=== PATIENT | male | born 1945 | race Caucasian/White ===

== ENCOUNTER 2020-01-01 14:58 | Inpatient (IN) | payer MEDICARE, MEDICAID ==
[~2020-01-01] VITALS: Ht 182.9 cm; Wt 84.9 kg
[2020-01-01] VITALS (20 sets, daily range): BP systolic 71–140; BP diastolic 35–107
--- NOTE | 2020-01-01 14:35 | NUR ---
ARRIVAL PT ARRIVED FROM [facility] VIA [facility] FLIGHT CREW. PT TRANSFERRED TO BED VIA STRETCHER X4. PT UNABLE TO GIVE ACCURATE HISTORY. A/O X1 ONLY. HOOKED UP TO ALL MONITORS.
[2020-01-01] MEDS ORDERED: LOPRESSER IVP STA (15:07)
[2020-01-01 15:31] LABS: ABG PCO2 28.7 mmHg (35.0-45.0); ABG PH 7.328 (7.350-7.450); BE(B) -9.8 mmol/L (-2.0-2.0); HCO3act 14.7 mmol/L (22.0-26.0); pO2 55.5 mmHg (80.0-100.0)
--- NOTE | 2020-01-01 15:40 | NUR ---
ABG ABG RESULTS CALLED TO DR. DALTON. ORDERS RECEIVED FOR SWITCH PATIENT TO BIPAP. YOLY RT NOTIFIED.
--- NOTE | 2020-01-01 15:42 | PCM.HP ---
History of Present Illness Hx of Present Illness 74-year-old male with past medical history of CABG coronary artery disease and TX earlier this month, by verbal report no records of this in transfer packet. He presented to [facility] with increased shortness of breath palpitations and chest pain was found to be in A. fib with RVR with a sustained rate of 150 this was treated with push doses of metoprolol and Cardizem he was requiring a nonrebreather and chest x-ray showed findings consistent with Covid pneumonia. Antigen testing was positive for Covid patient was treated with ceftriaxone, remdesivir, dexamethasone and was also found to have a potassium of 2.5 which was replaced with IV potassium. Facility did not have any available ICU beds or high flow nasal cannula they were also out of BiPAP he tried to transfer the patient to an area closer to [place] but all hospitals were full and adjacent cities of [facility] in [place] for this reason [facility] [facility] was contacted as we have available ICU beds and available high flow nasal cannula with the option of BiPAP. In setting of current situation patient was transferred to the nearest appropriate facility with the correct resources to care for him we do have cardiology available and they have been consulted due to mildly elevated troponin of 0.246 which is likely a demand ischemia given A. fib with RVR and COVID-19 positive as well as hypoxia despite nonrebreather. No active chest pain upon arrival no acute ischemic changes on EKG Did show A. fib with RVR with heart rate initially 160s then slowed to 93 on repeat evaluation. Labs at [facility] were notable for white blood cell count of 21 he did receive steroids hemoglobin 13.2 platelet count 344. Creatinine 1.3 glucose 151 normal LFTs BNP of 564 and alcohol level of 6 mg/dL patient has a history of heavy drinking over the last 3 months his does report some diarrhea that has been dark and vomiting. Overall patient is a poor historian and most of the history w as obtained from physician signout report family and medical records Medications: Listed in patient's medical record include clopidogrel 75 mg p.o. daily, carvedilol 6.25 mg p.o. twice daily, lisinopril 10 mg p.o. daily, atorvastatin 20 mg p.o. nightly, Isosorbide dinitrate 20 mg p.o. twice daily. Tylenol with codeine 1 tab p.o. every 4 hours as needed for pain nifedipine 30 mg tablet ER p.o. twice daily icosapent Danya 1 g capsule p.o. twice daily aspirin 81 mg p.o. daily gabapentin 300 mg p.o. 3 times daily allopurinol 100 mg p.o. twice daily Medical history: Cardiac catheterization with stents x4 CABG hyperlipidemia, hypertension, myocardial infarction 09/05/2018 no internal defibrillator Surgical history: Neck surgery C2, cardiovascular surgery-CABG, gastrointestinal surgery, cholecystectomy, appendectomy Review of Systems Constitutional: Weakness, Malaise Eyes: No: Pain, Vision change, Conjunctivae inflammation, Eyelid inflammation, Other, Redness ENT: No: Ear pain, Ear discharge, Nose pain, Nose discharge, Nose congestion, Mouth pain, Mouth swelling, Throat pain, Throat swelling, Other Respiratory: Cough, Shortness of breath Cardiovascular: Chest Pain Gastrointestinal: Nausea, Vomiting, Diarrhea Genitourinary: No Dysuria, No Frequency, No Incontinence, No Hematuria, No Retention, No Other Musculoskeletal: No: other, neck pain, shoulder pain, arm pain, back pain, hand pain, leg pain, foot pain Skin: No: Rash, Lesions, Jaundice, Bruising, Other Neurological: Weakness Allergies: Coded Allergies: No Known Allergies (Unverified , 01/01/20) VTE VTE Risk Score VTE Risk: Score 0-1 = Low Risk (Aggressive mobilization; early ambulation; no VTE prophylaxis required) Score 2: Moderate Risk (Intermittent/Pneumatic Compression Device OR Lovenox/Heparin/Coumadin) Score 3-4: High Risk (Intermittent/Pneumatic Compression Device AND Lovenox/Heparin/Coumadin) Score > or =5: Highest Risk (Intermittent/Pneumatic Compression Device AND Lovenox/Heparin/Coumadin) Antico:Hep/LMWH/Coum/Xarelto: Yes Mechanical device ordered: Yes Exam Vital Signs Vital Signs Date Time Temp Pulse Resp B/P (MAP) Pulse Ox O2 Delivery O2 Flow Rate FiO2 01/01/20 15:19 122 140/107 01/01/20 15:02 26 92 01/01/20 14:40 Comfort Jose R 45.00 General Appearance: Alert, Cooperative HEENT: Atraumatic Respiratory: Other (Course breath sounds bilaterally, tachypnea) Cardiovascular: Other (Tachycardia with irregularly irregular pulse) Abdominal: Normal bowel sounds, Soft, No tenderness Extremities: No cyanosis, No edema Skin: No rash, No breakdown Neuro: Sensation intact, Cranial nerves 3-12 NL Psych/Mental Status: Mood NL Assessment/Plan Assessment/Plan Assessment/Plan Assessment: 74-year-old male with acute hypoxemic respiratory failure due to COVID-19 pneumonia with extensive heart history including CABG and TX earlier this month as well as hypokalemia. Presented with shortness of breath and chest pain. Plan: Hilaria chapman with RVR: Consulted Dr. Rich with cardiology will obtain echo full dose anticoagulation with enoxaparin for now given COVID-19 positive status may transition to oral anticoagulation based on chads vas 2 score. Medical management of elevated troponin that may be due to demand ischemia rate control with diltiazem drip. Check TSH and magnesium, replete potassium Chest pain: Now resolved after aspirin enoxaparin oxygen cardiology is on board will read echo in the morning no plans for any invasive cardiac work-up inpat ient given Covid positive status plan to set up outpatient cardiac work-up. Will trend troponins and repeat EKG if patient again develops chest pain. No clear acute ischemic changes on EKG evaluation somewhat limited with A. fib RVR echocardiogram obtained. COVID-19 pneumonia: We will treat with remdesivir, dexamethasone, azithromycin, ceftriaxone, full dose enoxaparin- high flow nasal cannula alternating with CPAP or BiPAP and intubation as a last resort should other respiratory interventions prove unsuccessful. Vitamin D supplementation zinc vitamin C. Blood cultures Hypokalemia: We will check mag level and repeat calcium level after IV potassium infusion has completed Reported history of alcohol abuse: Blood alcohol level was nearly undetectable we will monitor CIWA scale and treat with Ativan as indicated will initiate thiamine and folate replacement IV DVT prophylaxis with SCDs and enoxaparin GI prophylaxis with Pepcid Medications: Listed in patient's medical record include clopidogrel 75 mg p.o. daily, carvedilol 6.25 mg p.o. twice daily, lisinopril 10 mg p.o. daily, atorvastatin 20 mg p.o. nightly, Isosorbide dinitrate 20 mg p.o. twice daily. Tylenol with codeine 1 tab p.o. every 4 hours as needed for pain nifedipine 30 mg tablet ER p.o. twice daily icosapent Danya 1 g capsule p.o. twice daily aspirin 81 mg p.o. daily gabapentin 300 mg p.o. 3 times daily allopurinol 100 mg p.o. twice daily Medical history: Cardiac catheterization with stents x4 CABG hyperlipidemia, hypertension, myocardial infarction 09/05/2018 no internal defibrillator Problems: (1) Pneumonia due to COVID-19 virus ICD Code: U07.1 - COVID-19; J12.89 - Other viral pneumonia (2) Hyponatremia ICD Code: E87.1 - Hypo-osmolality and hyponatremia SNOMED: 58535268 (3) Atrial fibrillation with RVR ICD Code: I48.91 - Unspecified atrial fibrillation SNOMED: 009083780539290 (4) Elevated troponin ICD Code: R77.8 - Other specified abnormalities of plasma proteins SNOMED: 465946369, 355185949, 885649611 (5) Acute hypoxemic respiratory failure due to severe acute respiratory syndrome coronavirus 2 (SARS-CoV-2) disease ICD Code: U07.1 - COVID-19; J96.01 - Acute respiratory failure with hypoxia TAMY DALTON MD Jan 01, 2020 15:42
--- NOTE | 2020-01-01 15:45 | NUR ---
CARDIOLOGY DR DALTON NOTIFIED THIS NURSE THAT DR BROWN HAS BEEN CONSULTS FOR PTS CASE. ECHO HAS BEEN ORDERED. PT TO BE STARTED ON CARDIZEM DRIP PER PROTOCOL. SEE EMR FOR NEW ORDERS.
[2020-01-01] MEDS ORDERED: CARDIZEM IV STA (16:23)
--- NOTE | 2020-01-01 16:23 | PCM.EKG ---
[facility] Test Date: 2020-01-01 Test Time: 15:14:59 Pat Name: PRASANTH NG Department: [id number]4 A Gender: M Director Of Safety And Security: KENJI : 1945 Requested By: TAMY DALTON Order Number: [id number] Reading MD: Measurements Intervals [place] Rate: 93 P: AL: QRS: 47 QRSD: 139 T: -24 QT: 356 QTc: 443 Interpretive Statements Atrial fibrillation Right bundle branch block Borderline ST depression, lateral leads Baseline wander in lead(s) II No previous ECG available for comparison Please click the below link to view image of tracing.
[2020-01-01] MEDS ORDERED: ATIVAN IV STA (16:25)
--- NOTE | 2020-01-01 16:27 | DIREP ---
PROCEDURE:CHEST 1 VIEW COMPARISON:None. INDICATIONS:SHORTNESS OF BREATH FINDINGS: LUNGS/PLEURA:Multiple foci of ground-glass opacities in both lungs. Left hemidiaphragmatic border is obscured; cannot rule out small left pleural effusion. VASCULATURE:Normal. Unremarkable pulmonary vasculature. CARDIAC:Normal heart size. Sternotomy wires and mediastinal clips suggestive of prior CABG surgery. Calcification of the aortic knob. MEDIASTINUM:Normal. No visible mass or adenopathy. BONES:No acute pathology. Anterior fusion hardware in the lower C-spine. OTHER:Negative. CONCLUSION:Bilateral ground-glass infiltrates suggestive of viral pneumonia. Dictated by: Robbie Persaud M.D. on 01/01/2020 at 04:24 PM
--- NOTE | 2020-01-01 16:30 | NUR ---
ACCESS UNABLE TO OBTAIN LABS. REQUESTED A MIDLINE PLACEMENT. OKAY TO PLACE MIDLINE PER DR DALTON. Jeni GRACE RN NOTIFIED
[2020-01-01] MEDS ORDERED: DILTIAZEM HCL IV ONE (16:44)
[2020-01-01] MEDS ORDERED: CARDIZEM ONE (16:44)
--- NOTE | 2020-01-01 17:00 | NUR ---
MIDLINE Brenda ANDREWS RN AND Jeni GRACE RN AT BEDSIDE FOR MIDLINE PLACEMENT
--- NOTE | 2020-01-01 17:10 | NUR ---
COMBATIVE PT FIGHTING BIPAP AND ATTEMPTED TO PULL OUT GODOY CATH. DR DALTON NOTIFIED. ORDERS RECEIVED FOR SOFT EXTREMITY RESTRAINTS FOR UPPER EXTREMITIES. PLACED AT THIS TIME.
[2020-01-01] MEDS: DECADRON IV SCH (17:11)
[2020-01-01] MEDS: PEPCID IV SCH ×2 (17:12→20:37)
[2020-01-01] MEDS: REMDESIVIR (EUA) 100 MG in NS 250ML 250 ML IV SCH (17:12)
[2020-01-01] MEDS: CARDIZEM 125 MG in NS 100ML 100 ML IV SCH (17:12)
[2020-01-01] MEDS: ROCEPHIN 1,000 MG in NS 100ML 100 ML IV SCH (17:12)
[2020-01-01] MEDS: LOVENOX SQ SCH ×2 (17:13→20:39)
[2020-01-01] MEDS ORDERED: DILAUDID ONE (17:50)
--- NOTE | 2020-01-01 17:50 | NUR ---
COMBATIVE PT FIGHTING DURING MIDLINE INSERTION. ORDERS RECEIVE FOR DILAUDID 1MG IV. DR DALTON WILL ENTER IN ORDER
[2020-01-01] MEDS ORDERED: THIAMINE HCL IV STA (17:52)
[2020-01-01] MEDS: ZITHROMAX 500 MG in NS 250ML 250 ML IV SCH (17:54)
[2020-01-01] MEDS: NS 1000 ML/KCL 40MEQ 1,000 ML IV SCH (17:55)
[2020-01-01] MEDS: DILAUDID IV PRN (17:55)
[2020-01-01] MEDS ORDERED: VITAMIN D2 PO SCH (18:00)
[2020-01-01] MEDS ORDERED: FOLIC ACID IV ONE (18:00)
[2020-01-01 18:03] LABS: APPEARANCE,URINE CLEAR (CLEAR); BILIRUBIN,URINE SMALL MG/DL (NEGATIVE); UA COLOR YELLOW (YELLOW)
--- NOTE | 2020-01-01 18:20 | NUR ---
MIDLINE MIDLINE UNSUCCESSFUL. DR DALTON NOTIFIED. ORDERS RECEIVED FOR NS BOLUS X1 NOW THEN ATTEMPT REDRAW FOR LABS
[2020-01-01] MEDS ORDERED: INFUVITE ADULT IV SCH (18:30)
[2020-01-01] MEDS ORDERED: FOLIC ACID IV SCH (18:30)
[2020-01-01] MEDS ORDERED: NS 1000ML 1,000 ML IV ONE (18:30)
[2020-01-01] MEDS ORDERED: NS IV SCH (18:30)
[2020-01-01] MEDS ORDERED: THIAMINE HCL IV SCH (18:30)
--- NOTE | 2020-01-01 18:35 | NUR ---
MIDLINE-ATTEMPTED MIDLINE PLACEMENT X 2 TO LEFT UPPER ARM. GOOD BLOOD RETURN UNABLE TO ADVANCE WIRE. LAMBERTO BILLS ATTEMPTED TO PLACE MIDLINE TO RT UPPER ARM X 2 ATTEMPTS UNABLE TO ADVANCE WIRE. REPORT GIVEN TO Travis GRIFFIN RN
--- NOTE | 2020-01-01 18:40 | NUR ---
REPORT REPORT GIVEN TO Luis SHEETS RN AND RELINQUISHED CARE
--- NOTE | 2020-01-01 19:30 | NUR ---
Daily ICU assessment done at this time. Soft wrist restraints removed to palpate radial pulses, and put back on at this time. Radial pulses palpable at this time. Cap refill >4 at this time due to pt's hands being cold. Pedal pulses palpable at this time. Will continue to monitor pt.
[2020-01-01 19:46] LABS: ABG PCO2 23.2 mmHg (35.0-45.0); ABG PH 7.359 (7.350-7.450); BE(B) -10.9 mmol/L (-2.0-2.0); HCO3act 12.8 mmol/L (22.0-26.0); pO2 135.4 mmHg (80.0-100.0)
[2020-01-01 19:49] LABS: MEAN CORP HGB 28.4 pg (26-34); RED CELL DISTRIBUTION WIDTH 16.8 % (11.5-14.5)
[2020-01-01 20:23] LABS: CARBON DIOXIDE 16.2 mmol/L (20.0-32)
[2020-01-01 20:24] LABS: CALCIUM 8.4 mg/dL (8.4-10.5)
--- NOTE | 2020-01-01 20:39 | NUR ---
Lovenox 75mg was given at 1713. Another dose of Lovenox 75mg is due at 2100. This nurse will non-admin that scheduled dose due to being too close together.
[2020-01-01] MEDS ORDERED: NS 100ML 100 ML IV ONE (20:53)
[2020-01-01] MEDS ORDERED: MAGNESIUM SULFATE 50 ML IV ONE (20:55)
[2020-01-01] MEDS ORDERED: MAGNESIUM-D5W 1 GM/100 ML SOLN 100 ML IV ONE (21:00)
--- NOTE | 2020-01-01 21:23 | NUR ---
Soft wrist restraints removed to palpate radial pulses, and put back on at this time. Radial pulses palpable at this time. Cap refill <3 at this time. Skin still cool to touch. Pedal pulses palpable at this time. Will continue to monitor pt.
[2020-01-01] MEDS: ATIVAN IV PRN (22:22)
--- NOTE | 2020-01-01 23:00 | NUR ---
ICU-4, replaced portable E-cylinder. Nursing switching pumps. Transported Patient via bed to NV on NRB mask. Approximate time was 45 minutes.
[2020-01-02] VITALS (83 sets, daily range): BP systolic 66–181; BP diastolic 32–116
--- NOTE | 2020-01-02 00:20 | NUR ---
Soft wrist restraints removed to palpate radial pulses, and put back on at this time. Radial pulses palpable at this time. Cap refill <3 at this time. Pedal pulses palpable at this time. Will continue to monitor pt.
--- NOTE | 2020-01-02 00:30 | DIREP ---
PROCEDURE:CT PULMONARY ANGIOGRAM TECHNIQUE:Following the intravenous administration of contrast material, axial cuts were obtained through the chest. Sagittal and coronal MIP post-processing reconstructions are provided. Satisfactory pulmonary arterial contrast opacification was achieved. The images were viewed at lung and soft tissue settings. COMPARISON:[facility], , XRAY CHEST SINGLE VW, 01/01/2020, 03:21 PM. INDICATIONS:suspected PE FINDINGS: PULMONARY ARTERIES:Patent. LUNGS:Bilateral probably peripheral and basilar conglomerate consolidations, ground-glass opacities and interstitial thickening. CARDIAC:Heart size within normal limits. Coronary artery calcifications, CABG. THYROID:Normal. THORACIC AORTA:Normal. MEDIASTINUM:Normal. PLEURA:Normal. BONES:Sternotomy OTHER:No additional findings. CONCLUSION: 1. Negative for pulmonary embolism. 2. Commonly reported imaging features of COVID-19 pneumonia are present. Other processes such as influenza pneumonia and organizing pneumonia, as can be seen with drug toxicity and connective tissue disease, can cause a similar imaging pattern. Dictated by: Burton Soares M.D. on 01/02/2020 at 00:26 AM
--- NOTE | 2020-01-02 02:13 | NUR ---
Soft wrist restraints removed to palpate radial pulses, and put back on at this time. Radial pulses palpable at this time. Cap refill <3 at this time. Skin is warm to the touch. Pedal pulses palpable at this time. Will continue to monitor pt.
--- NOTE | 2020-01-02 02:15 | NUR ---
DR DALTON on the floor at this time. Pt HR fluctuates between 50-70s while on Cardizem 5mg drip. No changes made at this time. BPs are stable at this time. Will continue to monitor pt.
[2020-01-02] MEDS: ATIVAN IV PRN ×4 (03:29→22:30)
[2020-01-02] MEDS: NS 1000 ML/KCL 40MEQ 1,000 ML IV SCH ×2 (03:54→14:00)
[2020-01-02] MEDS ORDERED: CARDIZEM ONE (04:02)
[2020-01-02] MEDS ORDERED: NS 100ML 100 ML IV ONE (04:02)
[2020-01-02] MEDS: CARDIZEM 125 MG in NS 100ML 100 ML IV SCH (04:08)
--- NOTE | 2020-01-02 04:16 | NUR ---
Soft wrist restraints removed to palpate radial pulses, and put back on and retightened at this time. Radial pulses palpable at this time. Cap refill <3 at this time. Skin is warm to the touch. Pedal pulses palpable at this time. Will continue to monitor pt.
[2020-01-02 04:55] LABS: ABG PCO2 27.7 mmHg (35.0-45.0); ABG PH 7.293 (7.350-7.450); HCO3act 13.1 mmol/L (22.0-26.0)
--- NOTE | 2020-01-02 05:30 | NUR ---
ABG RESULT RELAYED TO DR DALTON. NO NEW ORDERS RECEIVED.
--- NOTE | 2020-01-02 06:14 | NUR ---
Soft wrist restraints removed to palpate radial pulses. Radial pulses palpable at this time. Cap refill <3 at this time. Skin is warm to the touch. Pedal pulses palpable at this time.
[2020-01-02 06:37] LABS: BASOPHIL % 0.1 % (0.0-0.2); LYMPHOCYTES % 4.6 % (24.0-44.0); MEAN CORP HGB 28.4 pg (26-34); MONOCYTES # 0.2 10^3/uL (0.3-0.8); MONOCYTES % 1.5 % (5.0-12.0); NEUTROPHIL # 12.2 10^3/uL (1.8-7.7); NEUTROPHILS % 92.7 % (41.0-85.0); PLATELET COUNT 325 10^3/uL (150-400); RED CELL DISTRIBUTION WIDTH 17.1 % (11.5-14.5)
[2020-01-02 07:11] LABS: CARBON DIOXIDE 16.8 mmol/L (20.0-32)
--- NOTE | 2020-01-02 07:17 | NUR ---
0630 recieved report/assumed care
[2020-01-02 07:20] LABS: CALCIUM 8.6 mg/dL (8.4-10.5)
[2020-01-02] MEDS: ZINC SULFATE PO SCH (08:26)
[2020-01-02] MEDS: PEPCID IV SCH ×2 (08:26→22:20)
[2020-01-02] MEDS: REMDESIVIR (EUA) 100 MG in NS 250ML 250 ML IV SCH (08:26)
[2020-01-02] MEDS: LOVENOX SQ SCH (08:27)
[2020-01-02 08:52] LABS: BURR CELLS 2+ (NEGATIVE); LYMPHOCYTE 4 % (25-36); MONOCYTE 2 % (3-9); SEGMENTED NEUTROPHILS 94 % (31-76)
[2020-01-02] MEDS ORDERED: PLAVIX PO SCH (09:00)
[2020-01-02] MEDS ORDERED: ASPIRIN PO SCH (09:00)
--- NOTE | 2020-01-02 09:57 | PCM.EKG ---
[facility] Test Date: 2020-01-02 Test Time: 09:53:00 Pat Name: PRASANTH NG Department: Room: ICU4 A Gender: M Assistant Infant Toddler Teacher: KENJI : 1945 Requested By: ALEK BROWN Order Number: [id number] Reading MD: Measurements Intervals [place] Rate: 42 P: AL: QRS: 43 QRSD: 175 T: -14 QT: 533 QTc: 446 Interpretive Statements Atrial fibrillation Right bundle branch block Borderline ST depression, lateral leads Baseline wander in lead(s) I,II,aVR,aVL,aVF,V2,V3,V4 Compared to ECG 01/01/2020 15:14:59 No significant changes Please click the below link to view image of tracing.
[2020-01-02] MEDS ORDERED: ATROPINE SULFATE IV STA (10:06)
--- NOTE | 2020-01-02 10:55 | PCM.ECHO ---
APPROVED REPORT EXAM: Comprehensive 2D, Doppler, and color-flow Echocardiogram. Patient Location: IN-PATIENT Indications Atrial Fibrillation Elevated troponin, Covid positive 2D Dimensions LVOT Diameter 2.09 (1.8-2.4cm) LVEF(%) 43.99 (>50%) M-Mode Dimensions Left Atrium(MM) 4.90 (2.5-4.0cm) IVSd 1.40 (0.7-1.1cm) Aortic Root 2.80 (2.2-3.7cm) LVDd 4.35 (4.0-5.6cm) Aortic Cusp Exc 1.50 (1.5-2.0cm) PWd 1.30 (0.7-1.1cm) MV EPSS 0.74 (<0.5cm) IVSs 1.30 cm FS (%) 30.05 % LVDs 3.05 (2.0-3.8cm) ESV(Teich) 37.12 ml PWs 1.85 cm LVEF(%) 57.57 (>50%) Volumes Biplane 2D LV Volumes Biplane 2D LA Volumes LVEDv A4C 139.41 mL LA ESV Index LVESv A4C 80.08 mL Aortic Valve AoV Peak Yannick. 1.55 m/s AoV VTI 28.80 cm AO Peak GR. 10.15 mmHg AO Mean GR. 5.10 mmHg LVOT VTI 14.85 cm LVOT Peak Yannick. 0.74 m/s PABLITO(VTI)/BSA 1.77 cm2/m2 PABLITO (VTI) 1.77 cm2 Mitral Valve MV E Velocity 1.45m/s MR Peak Gr. 28.55mmHg Pulmonary Valve PV Peak Velocity 0.80m/s PV Peak Grad. 2.75mmHg RVOT VTI 20.86cm Tricuspid Valve TR P. Velocity 2.90m/s RAP ESTIMATE 10.00mmHg TR Peak Gr. 34.34mmHg RVSP 44.34mmHg LEFT VENTRICLE The left ventricle is normal size. The left ventricular systolic function is normal. The left ventricular ejection fraction is within the normal range. There is normal left ventricular wall thickness. There is normal LV segmental wall motion. The left ventricular diastolic function is normal. There is no ventricular septal defect visualized. No left ventricle thrombus noted on this study. LVEF is 55-60%. RIGHT VENTRICLE The right ventricle is normal size. The right ventricular systolic function is normal. There is normal right ventricular wall thickness. ATRIA The left atrium size is normal. The right atrium size is normal. The interatrial septum is intact with no evidence for an atrial septal defect. AORTIC VALVE The aortic valve is normal in structure. There is no aortic valvular stenosis. No aortic regurgitation is present. There is no aortic valvular vegetation. MITRAL VALVE The mitral valve is normal in structure. There is no mitral valve stenosis. There is no mitral valve regurgitation noted. There is no evidence of mitral valve vegetations. TRICUSPID VALVE The tricuspid valve is normal in structure. There is no tricuspid valve stenosis. Moderate tricuspid regurgitation. There is no tricuspid valve vegetations. PULMONIC VALVE The pulmonary valve is normal in structure. There is no pulmonic valvular stenosis. There is no pulmonic valvular regurgitation. GREAT VESSELS The aortic root is normal in size. The pulmonary artery is normal. Aortic arch is not well visualized. The IVC is normal in size and collapses >50% with inspiration. PERICARDIUM There is no pericardial effusion. There is no pleural effusion. Other Information Study Quality: Fair <Conclusion> The left ventricular systolic function is normal. LVEF is 55-60%. Moderate tricuspid regurgitation. Electronically signed by : ALEK BROWN. 01/02/2020 10:54:33
--- NOTE | 2020-01-02 11:06 | NUR ---
ASSUMED CARE WITH HR IN 60'S WITH DROPS INTO THE 40'S, TOLD IN REPORT. 0900 HEART RATE PERSISTED IN THE 40'S. CARDIZEM STOPPED AT 0915, PROVIDER NOTIFIED ORDERED 1 MG OF ATROPINE IV WITH HR, ORDERED AND ADMINISTERED HR UP IN THE 88-90, ALL OTHER VS STABLE. PROVIDER ORDERED D/C OF ENOXAPARIN 7.5 AND NO OF XARELTO 20 MG Q DAILY PO
--- NOTE | 2020-01-02 12:40 | NUR ---
DISCHARGE UPDATE CASE MANAGEMENT PHONED PT'S DAUGHTER, ALLISON, D/T PT'S COVID POSITIVE STATIVE AND BIPAP OXYGEN REQUIREMENT. LIVES AT HOME ALONE. DAUGHTER LIVES [address] BLOCK AW[address]. THEY CHECK ON HIM FREQUENTLY. HE WAS INDEPENDENT PRIOR TO HIS HOSPITALIZATION AT [facility] IN [place] 12/15-12/18 FOR SEIZURES. HE HAS DME AT HOME INCLUDING A WALKER. HE DOES NOT CURRENTLY HAVE HOME OXYGEN, BUT THE DAUGHTER GAVE VERBAL CONSENT ON THE PHONE FOR [facility] TO PROVIDE HOME OXYGEN. CM OBTAINED ORDER AND FAXED TO [facility] THEN NOTIFIED VANDANA VALDEZ WITH [facility] CONCERNING REFERRAL. HE CURRENTLY HAS [facility] IN PLACE WITH NURSING AND THERAPY. CM CONTACT [facility] AND SPOKE TO MIKE. CLINICAL WAS FAXED TO [facility] TO REFERRAL THE THEY WOULD TURN IT OVER TO INTAKE. HE ALSO HAS OUTREACH PROVIDER THAT COMES 3 TIMES [facility] TO ASSIST WITH COOKING AND HOUSE CLEANING. HIS PCP IS MAYCO HUNG UNDER DR. CHELO GONZALEZ AT [facility]. DC PLAN IS TO DC HOME AND HAVE [facility] TO FOLLOW AND PROVIDER SERVICES. DAUGHTERALLISON IS AVAILABLE TO TRANSPORT HER # [phone] OR HER , RAYNE, # IS [phone]. Addendum: 01/02/20 at 1408 by Olamide Torres RN-[facility] [employer] UPDATE: PROVIDER SERVICES IS THROUGH [facility].
[2020-01-02] MEDS: DECADRON IV SCH (14:11)
--- NOTE | 2020-01-02 14:30 | PRM.PN ---
Subjective Subjective Date: Jan 02, 2020 Time: 14:30 Subjective Patient able to transition off BiPAP to high flow nasal cannula to allow him to eat lunch today his echocardiogram was completed and cardiology is following with recommendations as below VTE VTE Risk Total Score: 5 VTE Risk Score VTE Risk: Score 0-1 = Low Risk (Aggressive mobilization; early ambulation; no VTE prophylaxis required) Score 2: Moderate Risk (Intermittent/Pneumatic Compression Device OR Lovenox/Heparin/Coumadin) Score 3-4: High Risk (Intermittent/Pneumatic Compression Device AND Lovenox/Heparin/Coumadin) Score > or =5: Highest Risk (Intermittent/Pneumatic Compression Device AND Lovenox/Heparin/Coumadin) Antico:Hep/LMWH/Coum/Xarelto: Yes Mechanical device ordered: Yes Review of Systems Constitutional: Weakness, Malaise Eyes: No: Pain, Vision change, Conjunctivae inflammation, Eyelid inflammation, Other, Redness ENT: No: Ear pain, Ear discharge, Nose pain, Nose discharge, Nose congestion, Mouth pain, Mouth swelling, Throat pain, Throat swelling, Other Respiratory: Cough, Shortness of breath Cardiovascular: Chest Pain Gastrointestinal: Nausea, Vomiting, Diarrhea Genitourinary: No Dysuria, No Frequency, No Incontinence, No Hematuria, No Retention, No Other Musculoskeletal: No: other, neck pain, shoulder pain, arm pain, back pain, hand pain, leg pain, foot pain Skin: No: Rash, Lesions, Jaundice, Bruising, Other Neurological: Weakness Allergies: Coded Allergies: No Known Allergies (Unverified , 01/01/20) Objective Vitals and I/O Vital Sign - Last 24 Hours 01/01/20 01/01/20 01/01/20 01/01/20 14:40 15:02 15:19 15:26 Pulse 112 122 Resp 26 26 B/P (MAP) 140/107 Pulse Ox 92 92 O2 Delivery Comfort Jose R Comfort Jose R O2 Flow Rate 45.00 45.00 01/01/20 01/01/20 01/01/20 01/01/20 15:45 16:00 16:15 16:20 Temp 99.3 Pulse 124 109 107 117 Resp 31 68 23 28 B/P (MAP) 140/107 (118) 129/72 (91) Pulse Ox 89 87 94 98 O2 Delivery S/T FiO2 100 01/01/20 01/01/20 01/01/2012/31/20 16:30 16:45 17:00 17:10 Pulse 107 113 122 107 Resp 19 23 20 20 Pulse Ox 90 91 98 94 O2 Delivery S/T FiO2 100 01/01/20 01/01/20 01/01/20 01/01/20 17:12 17:12 17:15 18:47 Pulse 122 122 114 113 Resp 25 24 Pulse Ox 89 99 01/01/20 01/01/20 01/01/20 01/01/20 19:00 19:15 19:30 19:33 Pulse 99 103 84 94 Resp 25 27 19 B/P (MAP) 83/50 (61) 71/46 (54) 106/63 (77) Pulse Ox 100 97 98 01/01/20 01/01/20 01/01/20 01/01/20 19:45 19:55 20:00 20:15 Temp 97.9 Pulse 84 93 79 84 Resp 22 20 18 20 B/P (MAP) 71/36 (48) 86/50 (62) 108/64 (79) Pulse Ox 99 100 100 01/01/20 01/01/20 01/01/20 01/01/20 20:25 20:30 20:45 21:00 Pulse 85 79 74 Resp 23 19 20 B/P (MAP) 119/63 (81) 92/44 (60) 86/49 (61) Pulse Ox 93 95 O2 Delivery C-Pap 01/01/20 01/01/20 01/01/20 01/01/20 21:15 21:30 21:45 22:00 Pulse 59 71 65 61 Resp 19 19 19 19 B/P (MAP) 94/51 (65) 98/55 (69) 87/40 (56) 76/48 (57) Pulse Ox 95 94 94 95 01/01/20 01/01/20 01/01/20 01/01/20 22:15 22:30 22:45 22:57 Pulse 66 62 70 63 Resp 18 16 23 17 B/P (MAP) 109/60 (76) 85/42 (56) Pulse Ox 89 93 93 95 O2 Delivery CPAP FiO2 100 01/01/20 01/01/20 01/01/20 01/01/20 23:00 23:15 23:30 23:45 Pulse 85 80 76 96 Resp 23 14 19 33 B/P (MAP) 137/64 (88) 108/47 (67) 84/35 (51) 01/02/20 01/02/20 01/02/20 01/02/20 00:30 00:45 00:47 01:00 Temp 98.0 Pulse 97 82 84 Resp 46 20 22 B/P (MAP) 144/85 (104) 116/92 (100) O2 Delivery C-Pap 01/02/20 01/02/20 01/02/20 01/02/20 01:15 01:30 01:45 02:00 Pulse 77 64 71 66 Resp 22 24 21 20 B/P (MAP) 85/44 (58) 66/42 (50) 85/53 (64) 81/50 (60) Pulse Ox 100 100 100 100 01/02/20 01/02/20 01/02/20 01/02/20 02:15 02:30 02:45 03:00 Pulse 62 48 65 57 Resp 25 22 22 21 B/P (MAP) 93/60 (71) 99/51 (67) 114/42 (66) 116/60 (78) Pulse Ox 99 98 100 99 01/02/20 01/02/20 01/02/20 01/02/20 03:15 03:30 03:45 04:08 Pulse 55 48 63 60 Resp 26 23 23 B/P (MAP) 82/50 (61) 82/48 (59) Pulse Ox 96 94 98 01/02/20 01/02/20 01/02/20 01/02/20 04:15 04:23 04:30 04:45 Temp 97.9 Pulse 75 69 62 Resp 24 22 24 B/P (MAP) 126/62 (83) 100/54 (69) 94/45 (61) Pulse Ox 72 95 99 O2 Delivery C-Pap 01/02/20 01/02/20 01/02/20 01/02/20 05:00 05:15 05:19 05:30 Pulse 57 54 70 47 Resp 20 26 24 27 B/P (MAP) 90/37 (54) 74/35 (48) Pulse Ox 94 94 95 96 O2 Delivery CPAP FiO2 100 01/02/20 01/02/20 01/02/20 01/02/20 05:45 05:57 06:00 06:15 Pulse 46 51 58 47 Resp 22 22 25 22 B/P (MAP) 94/50 (65) 91/43 (59) 78/35 (49) Pulse Ox 100 98 100 96 O2 Delivery CPAP FiO2 100 01/02/20 01/02/20 01/02/20 01/02/20 06:30 06:45 07:00 07:15 Pulse 61 48 56 46 Resp 23 26 18 22 B/P (MAP) 136/52 (80) 128/56 (80) 124/44 (70) Pulse Ox 97 97 01/02/20 01/02/20 01/02/20 01/02/20 07:30 07:40 07:40 07:46 Temp 96.1 Pulse 48 66 64 66 Resp 14 22 22 33 B/P (MAP) 113/32 (59) 128/75 (92) Pulse Ox 96 95 95 90 O2 Delivery CPAP C-Pap FiO2 100 100 01/02/20 01/02/20 01/02/20 01/02/20 08:01 08:16 08:30 08:32 Pulse 60 82 78 67 Resp 18 44 24 29 B/P (MAP) 130/72 (91) 120/55 (76) 84/42 (56) 112/53 (72) Pulse Ox 95 88 53 94 01/02/20 01/02/20 01/02/20 01/02/20 08:45 09:00 09:15 09:28 Pulse 41 45 51 59 Resp 26 26 27 24 B/P (MAP) 95/58 (70) 100/73 (82) 87/38 (54) 112/64 (80) Pulse Ox 96 99 98 01/02/20 01/02/20 01/02/20 01/02/20 09:31 09:45 10:00 10:16 Pulse 61 38 55 60 Resp 30 23 26 21 B/P (MAP) 116/54 (74) 95/58 (70) 122/58 (79) 119/45 (69) Pulse Ox 98 91 99 01/02/20 01/02/20 01/02/20 01/02/20 10:31 10:46 11:00 11:15 Pulse 57 53 76 79 Resp 30 49 24 22 B/P (MAP) 137/67 (90) 109/61 (77) 105/59 (74) Pulse Ox 100 97 100 100 10/30/20 01/02/20 01/02/20 01/02/20 11:30 11:45 12:00 12:15 Pulse 87 86 95 92 Resp 18 25 27 25 B/P (MAP) 120/66 (84) 139/66 (90) 131/54 (79) 129/61 (83) Pulse Ox 97 92 78 96 01/02/20 12:16 Pulse 88 Resp 30 Pulse Ox 100 Intake and Output 01/02/20 07:00 Intake Total 2415 ml Output Total 500 ml Balance 1915 ml General: Alert, Cooperative HEENT: Atraumatic Neck: Supple Lungs: Other (Course breath sounds bilaterally, tachypnea) Heart: Regular rate Abdomen: Normal bowel sounds, Soft, No tenderness Extremities: No cyanosis, No edema Neuro: Normal speech, Sensation intact, Cranial nerves 3-12 NL Psych/Mental Status: Mental status NL, Mood NL Other physical findings Patient on high flow nasal cannula now has weaned off BiPAP so that he can eat All Results(Lab/Rad) Laboratory Tests Test 01/01/20 14:54 01/01/20 15:23 01/01/20 19:30 01/01/20 19:35 Urine Collection Type UNKNOWN Urine Color YELLOW Urine Appearance CLEAR Urine Bilirubin SMALL MG/DL Urine Ictotest NEGATIVE Urine Ketones 15 mg/dL Urine Specific [place] >1.030 Urine pH 6.0 Urine Protein 100 mg/dL Urine Urobilinogen 1.0 Urine Nitrate NEGATIVE Urine Leukocyte Esterase NEGATIVE Urine Blood SMALL Urine RBC 0-2 RBC/HPF Urine WBC 0-2 WBC/HPF Urine Squamous Epithelial Cells RARE #/HPF Urine Bacteria NONE SEEN Urine Glucose NORMAL Blood Gas Sample Site LR RT RADIAL ARTERY Blood Gas pH 7.328 7.359 Blood Gas PCO2 28.7 mmHg 23.2 mmHg Blood Gas PO2 55.5 mmHg 135.4 mmHg Blood Gas HCO3 14.7 mmol/L 12.8 mmol/L Blood Gas Base Excess -9.8 mmol/L -10.9 mmol/L Heber Test N/A POSITIVE Arterial Blood Oxygen Saturation 87.4 % 97.9 % Deoxyhemoglobin 12.5 % 2.1 % Carboxyhemoglobin 0.8 % 0.9 % Methemoglobin 0.0 % 0.3 % Total Hemoglobin 13.4 % 11.5 % Total Oxygen Concentration 16.3 % 15.9 % Blood Gas Temperature 37 Oxygen Delivery Method (LAB) COMFORT FLOW CPAP 16 FiO2 100 % 100 % Total Carbon Dioxide 15.6 mmol/L 13.5 mmol/L White Blood Count 15.6 10^3/uL Red Blood Count 3.66 10^6/uL Hemoglobin 10.4 g/dL Hematocrit 31.0 % Mean Corpuscular Volume 84.7 fL Mean Corpuscular Hemoglobin 28.4 pg Mean Corpuscular Hemoglobin Concent 33.5 g/dL Red Cell Distribution Width 16.8 % Platelet Count 319 10^3/uL Mean Platelet Volume 9.5 fL Prothrombin Time 11.4 SEC Prothrombin Time INR (Non-Therap) 1.1 D-Dimer 1.26 mg/L Sodium Level 138 mmol/L Potassium Level 3.6 mmol/L Chloride Level 110.0 mmol/L Carbon Dioxide Level 16.2 mmol/L Anion Gap 15.4 Blood Urea Nitrogen 26 mg/dL Creatinine 1.15 mg/dL Estimated GFR () 75.0 Est GFR (CKD-EPI)(Non-Afr Faroese) 62.0 BUN/Creatinine Ratio 22.0 Glucose Level 126 mg/dL Lactic Acid Level 1.0 mmol/L Calcium Level 8.4 mg/dL Magnesium Level 1.6 mg/dL Ferritin 246 ng/mL Total Bilirubin 0.3 mg/dL Aspartate Amino Transf (AST/SGOT) 29 U/L Alanine Aminotransferase (ALT/SGPT) 22 U/L Alkaline Phosphatase 80 U/L Lactate Dehydrogenase 362 U/L Total Creatine Kinase 95 U/L Creatine Kinase MB 2.4 ng/mL Troponin I 0.20 ng/mL Total Protein 5.7 g/dL Albumin 2.0 g/dL Globulin 3.7 Albumin/Globulin Ratio 0.540 Procalcitonin 0.19 ng/mL Thyroid Stimulating Hormone (TSH) 0.613 mIU/mL Free Thyroxine 1.36 ng/dL Thyroxine (T4) 7.4 ug/dL Free Triiodothyronine (T3) Index 1.27 pg/mL Test 01/02/20 03:52 01/02/20 06:00 01/02/20 07:11 01/02/20 11:42 Blood Gas Sample Site RT RADIAL ARTERY Blood Gas pH 7.293 Blood Gas PCO2 27.7 mmHg Blood Gas PO2 84.0 mmHg Blood Gas HCO3 13.1 mmol/L Blood Gas Base Excess -12.0 mmol/L Heber Test POSITIVE Arterial Blood Oxygen Saturation 94.9 % Deoxyhemoglobin 5.1 % Carboxyhemoglobin 0.6 % Methemoglobin 0.3 % Total Hemoglobin 11.4 % Total Oxygen Concentration 15.2 % FiO2 100 % Blood Gas PEEP 15.0 CMH2O Total Carbon Dioxide 14.0 mmol/L White Blood Count 13.1 10^3/uL Red Blood Count 3.95 10^6/uL Hemoglobin 11.2 g/dL Hematocrit 33.8 % Mean Corpuscular Volume 85.6 fL Mean Corpuscular Hemoglobin 28.4 pg Mean Corpuscular Hemoglobin Concent 33.1 g/dL Red Cell Distribution Width 17.1 % Platelet Count 325 10^3/uL Mean Platelet Volume 9.7 fL Neutrophils (%) (Auto) 92.7 % Lymphocytes (%) (Auto) 4.6 % Monocytes (%) (Auto) 1.5 % Neutrophils # (Auto) 12.2 10^3/uL Lymphocytes # (Auto) 0.60 10^3/uL1 Monocytes # (Auto) 0.2 10^3/uL Absolute Immature Granulocyte (auto 0.14 10^3 u/L Absolute Eosinophils (auto) 0.0 10^3/uL Immature Granulocytes % 1.10 % Eosinophils % 0.0 % Basophils % 0.1 % Basophils # 0.0 10^3/uL Sodium Level 142 mmol/L Potassium Level 3.4 mmol/L Chloride Level 112.0 mmol/L Carbon Dioxide Level 16.8 mmol/L Anion Gap 16.6 Blood Urea Nitrogen 23 mg/dL Creatinine 1.07 mg/dL Estimated GFR () 81.5 Est GFR (CKD-EPI)(Non-Afr Faroese) 67.4 BUN/Creatinine Ratio 21.0 Glucose Level 150 mg/dL Calcium Level 8.6 mg/dL Magnesium Level 2.2 mg/dL Total Bilirubin 0.4 mg/dL Aspartate Amino Transf (AST/SGOT) 26 U/L Alanine Aminotransferase (ALT/SGPT) 24 U/L Alkaline Phosphatase 85 U/L Total Protein 6.3 g/dL Albumin 2.1 g/dL Globulin 4.2 Albumin/Globulin Ratio 0.500 Differential Total Cells Counted 100 #CELLS Segmented Neutrophils 94 % Lymphocytes 4 % Monocytes 2 % Platelet Estimate ADEQUATE Platelet Morphology NORMAL [place] Cells 2+ Bedside Glucose 131 Current Medications Medications (Trade) Dose Ordered Sig/Baldemar Route PRN Reason Start Time Stop Time Status Last Admin Dose Admin Metoprolol Tartrate (Lopresser) 3 mg STAT STAT IVP 01/01/20 15:07 01/01/20 16:08 DC 01/01/20 15:19 Ceftriaxone Sodium 1000 mg/ Sodium Chloride 100 ml @ 100 mls/hr Q24HRS IV 01/01/20 16:00 01/31/20 15:59 01/01/20 17:12 Azithromycin 500 mg/Sodium Chloride 250 ml @ 175 mls/hr Q24HRS IV 01/01/20 16:00 01/31/20 15:59 01/01/20 17:54 Diltiazem HCl (Cardizem) 10 mg STAT STAT IV 01/01/20 16:23 01/01/20 16:48 DC 01/01/20 17:12 Diltiazem HCl 125 mg/Sodium Chloride 125 ml @ 0 mls/hr IV 01/01/20 16:30 01/31/20 16:29 01/02/20 04:08 Lorazepam (Ativan) 1 mg STAT STAT IV 01/01/20 16:25 01/01/20 16:48 DC 01/01/20 16:25 Enoxaparin Sodium (Lovenox) 75 mg BID SQ 01/01/20 16:30 01/02/20 10:40 DC 01/02/20 08:27 Famotidine (Pepcid) 20 mg BID IV 01/01/20 16:30 01/31/20 16:29 01/02/20 08:26 Remdesivir (Eua) 100 mg/Sodium Chloride 270 ml @ 250 mls/hr DAILY IV 01/01/20 16:47 01/31/20 16:46 01/02/20 08:26 Lorazepam (Ativan) 1 mg Q4HR PRN IV ANXIETY 01/01/20 17:00 01/31/20 16:59 01/02/20 11:42 Diltiazem HCl (Cardizem) 125 mg STK-MED ONCE .ROUTE 01/01/20 16:44 01/01/20 16:45 DC Diltiazem HCl (Diltiazem HCl) 50 mg STK-MED ONCE IV 01/01/20 16:44 01/01/20 16:46 DC Potassium Chloride/Sodium Chloride 1,000 ml @ 100 mls/hr Q10H IV 01/01/20 18:00 01/31/20 17:59 01/02/20 14:00 Hydromorphone HCl (Dilaudid) 2 mg STK-MED ONCE .ROUTE 01/01/20 17:50 01/01/20 17:52 DC Hydromorphone HCl (Dilaudid) 1 mg Q6HR PRN IV PAIN 7 - 10 01/01/20 18:00 01/31/20 17:59 01/01/20 17:55 Ergocalciferol (Vitamin D2) 50,000 unit DAILY24 PO 01/01/20 18:00 01/01/20 18:24 DC Zinc Sulfate (Zinc Sulfate) 220 mg DAILY PO 01/02/20 09:00 02/01/20 08:59 01/02/20 08:26 Aspirin (Aspirin) 81 mg DAILY PO 01/02/20 09:00 02/01/20 08:59 01/02/20 08:26 Clopidogrel Bisulfate (Plavix) 75 mg DAILY PO 01/02/20 09:00 02/01/20 08:59 01/02/20 08:26 Thiamine HCl (Thiamine HCl) 100 mg STAT STAT IV 01/01/20 17:52 01/01/20 18:24 DC Folic Acid (Folic Acid) 1 mg OT ONCE IV 01/01/20 18:00 01/01/20 18:24 DC Multivit Infusn,Adult 4,Vit K 10 ml/ Thiamine HCl 100 mg/Folic Acid 1 mg/Sodium Chloride 1,011.2 ml @ 100 mls/ hr Q10H7M IV 01/01/20 18:30 01/02/20 04:36 DC 01/01/20 20:12 Sodium Chloride 1,000 ml @ 1,000 mls/hr Q1H ONCE IV 01/01/20 18:30 01/01/20 19:29 DC 01/01/20 18:31 Magnesium Sulfate/ Dextrose 100 ml @ 100 mls/hr OT ONCE IV 01/01/20 21:00 01/01/20 21:59 DC 01/01/20 20:58 Sodium Chloride 100 ml @ ud STK-MED ONCE IV 01/01/20 20:53 01/01/20 20:55 DC Magnesium Sulfate 50 ml @ ud STK-MED ONCE IV 01/01/20 20:55 01/01/20 20:56 DC Sodium Chloride 100 ml @ ud STK-MED ONCE IV 01/02/20 04:02 01/02/20 04:04 DC Diltiazem HCl (Cardizem) 125 mg STK-MED ONCE .ROUTE 01/02/20 04:02 01/02/20 04:04 DC Atropine Sulfate (Atropine Sulfate) 1 mg STAT STAT IV 01/02/20 10:06 01/02/20 10:11 DC 01/02/20 11:12 Rivaroxaban (Xarelto) 20 mg DAILY PO 01/03/20 09:00 02/02/20 08:59 Diltiazem HCl (Cardizem) 30 mg BID PO 01/02/20 21:00 02/01/20 20:59 Course Sepsis Screening Results: Posi: NEGATIVE Sepsis Qualifier/Stage: NO DEFINITE RISK Vitals & review Data Vital Sign - Last 24 Hours 01/01/20 01/01/20 01/01/20 01/01/20 14:40 15:02 15:19 15:26 Pulse 112 122 Resp B/P (MAP) 140/107 Pulse Ox 92 92 O2 Delivery Comfort Jose R Comfort Jose R O2 Flow Rate 45.00 45.00 01/01/20 01/01/20 01/01/20 01/01/20 15:45 16:00 16:15 16:20 Temp 99.3 Pulse 124 109 107 117 Resp 31 68 23 28 B/P (MAP) 140/107 (118) 129/72 (91) Pulse Ox 89 87 94 98 O2 Delivery S/T FiO2 100 01/01/20 01/01/20 01/01/20 01/01/20 16:30 16:45 17:00 17:10 Pulse 107 113 122 107 Resp 19 23 20 20 Pulse Ox 90 91 98 94 O2 Delivery S/T FiO2 100 01/01/20 01/01/20 01/01/20 01/01/20 17:12 17:12 17:15 18:47 Pulse 122 122 114 113 Resp 24 Pulse Ox 89 99 01/01/20 01/01/20 01/01/20 01/01/20 19:00 19:15 19:30 19:33 Pulse 99 103 84 94 Resp 27 25 27 19 B/P (MAP) 83/50 (61) 71/46 (54) 106/63 (77) Pulse Ox 100 97 98 10/29/20 10/29/20 10/29/20 10/29/20 19:45 19:55 20:00 20:15 Temp 97.9 Pulse 84 93 79 84 Resp 22 20 18 20 B/P (MAP) 71/36 (48) 86/50 (62) 108/64 (79) Pulse Ox 99 100 100 01/01/20 01/01/20 01/01/20 01/01/20 20:25 20:30 20:45 21:00 Pulse 85 79 74 Resp 23 19 20 B/P (MAP) 119/63 (81) 92/44 (60) 86/49 (61) Pulse Ox 93 95 O2 Delivery C-Pap 01/01/20 01/01/20 01/01/20 01/01/20 21:15 21:30 21:45 22:00 Pulse 59 71 65 61 Resp 19 19 19 19 B/P (MAP) 94/51 (65) 98/55 (69) 87/40 (56) 76/48 (57) Pulse Ox 95 94 94 95 01/01/20 01/01/20 01/01/20 01/01/20 22:15 22:30 22:45 22:57 Pulse 66 62 70 63 Resp 18 16 23 17 B/P (MAP) 109/60 (76) 85/42 (56) Pulse Ox 89 93 93 95 O2 Delivery CPAP FiO2 100 01/01/20 01/01/20 01/01/20 01/01/20 23:00 23:15 23:30 23:45 Pulse 85 80 76 96 Resp 23 14 19 33 B/P (MAP) 137/64 (88) 108/47 (67) 84/35 (51) 01/02/20 01/02/20 01/02/20 01/02/20 00:30 00:45 00:47 01:00 Temp 98.0 Pulse 97 82 84 Resp 46 20 22 B/P (MAP) 144/85 (104) 116/92 (100) O2 Delivery C-Pap 01/02/20 01/02/20 01/02/20 01/02/20 01:15 01:30 01:45 02:00 Pulse 77 64 71 66 Resp 22 24 21 20 B/P (MAP) 85/44 (58) 66/42 (50) 85/53 (64) 81/50 (60) Pulse Ox 100 100 100 100 01/02/20 01/02/20 01/02/20 01/02/20 02:15 02:30 02:45 03:00 Pulse 62 48 65 57 Resp 25 22 22 21 B/P (MAP) 93/60 (71) 99/51 (67) 114/42 (66) 116/60 (78) Pulse Ox 99 98 100 99 01/02/20 01/02/20 01/02/20 01/02/20 03:15 03:30 03:45 04:08 Pulse 55 48 63 60 Resp 26 23 23 B/P (MAP) 82/50 (61) 82/48 (59) Pulse Ox 96 94 98 01/02/20 01/02/20 01/02/20 01/02/20 04:15 04:23 04:30 04:45 Temp 97.9 Pulse 75 69 62 Resp 24 22 24 B/P (MAP) 126/62 (83) 100/54 (69) 94/45 (61) Pulse Ox 72 95 99 O2 Delivery C-Pap 01/02/20 01/02/20 01/02/20 01/02/20 05:00 05:15 05:19 05:30 Pulse 57 54 70 47 Resp 20 26 24 27 B/P (MAP) 90/37 (54) 74/35 (48) Pulse Ox 94 94 95 96 O2 Delivery CPAP FiO2 100 01/02/20 01/02/20 01/02/20 01/02/20 05:45 05:57 06:00 06:15 Pulse 46 51 58 47 Resp 22 22 25 22 B/P (MAP) 94/50 (65) 91/43 (59) 78/35 (49) Pulse Ox 100 98 100 96 O2 Delivery CPAP FiO2 100 01/02/20 01/02/20 01/02/20 01/02/20 06:30 06:45 07:00 07:15 Pulse 61 48 56 46 Resp 23 26 18 22 B/P (MAP) 136/52 (80) 128/56 (80) 124/44 (70) Pulse Ox 97 97 01/02/20 01/02/20 01/02/20 01/02/20 07:30 07:40 07:40 07:46 Temp 96.1 Pulse 48 66 64 66 Resp 14 22 22 33 B/P (MAP) 113/32 (59) 128/75 (92) Pulse Ox 96 95 95 90 O2 Delivery CPAP C-Pap FiO2 100 100 01/02/20 01/02/20 01/02/20 01/02/20 08:01 08:16 08:30 08:32 Pulse 60 82 78 67 Resp 18 44 24 29 B/P (MAP) 130/72 (91) 120/55 (76) 84/42 (56) 112/53 (72) Pulse Ox 95 88 53 94 01/02/20 01/02/20 01/02/20 01/02/20 08:45 09:00 09:15 09:28 Pulse 41 45 51 59 Resp 26 26 27 24 B/P (MAP) 95/58 (70) 100/73 (82) 87/38 (54) 112/64 (80) Pulse Ox 96 99 98 01/02/20 01/02/20 01/02/20 01/02/20 09:31 09:45 10:00 10:16 Pulse 61 38 55 60 Resp 30 23 26 21 B/P (MAP) 116/54 (74) 95/58 (70) 122/58 (79) 119/45 (69) Pulse Ox 98 91 99 01/02/20 01/02/20 01/02/20 01/02/20 10:31 10:46 11:00 11:15 Pulse 57 53 76 79 Resp 30 49 24 22 B/P (MAP) 137/67 (90) 109/61 (77) 105/59 (74) Pulse Ox 100 97 100 100 01/02/20 01/02/20 01/02/20 01/02/20 11:30 11:45 12:00 12:15 Pulse 87 86 95 92 Resp 18 25 27 25 B/P (MAP) 120/66 (84) 139/66 (90) 131/54 (79) 129/61 (83) Pulse Ox 97 92 78 96 01/02/20 12:16 Pulse 88 Resp 30 Pulse Ox 100 Intake and Output 01/02/20 07:00 Intake Total 2415 ml Output Total 500 ml Balance 1915 ml Laboratory Tests Test 01/01/20 14:54 01/01/20 15:23 01/01/20 19:30 01/01/20 19:35 Urine Collection Type UNKNOWN Urine Color YELLOW Urine Appearance CLEAR Urine Bilirubin SMALL MG/DL Urine Ictotest NEGATIVE Urine Ketones 15 mg/dL Urine Specific [place] >1.030 Urine pH 6.0 Urine Protein 100 mg/dL Urine Urobilinogen 1.0 Urine Nitrate NEGATIVE Urine Leukocyte Esterase NEGATIVE Urine Blood SMALL Urine RBC 0-2 RBC/HPF Urine WBC 0-2 WBC/HPF Urine Squamous Epithelial Cells RARE #/HPF Urine Bacteria NONE SEEN Urine Glucose NORMAL Blood Gas Sample Site LR RT RADIAL ARTERY Blood Gas pH 7.328 7.359 Blood Gas PCO2 28.7 mmHg 23.2 mmHg Blood Gas PO2 55.5 mmHg 135.4 mmHg Blood Gas HCO3 14.7 mmol/L 12.8 mmol/L Blood Gas Base Excess -9.8 mmol/L -10.9 mmol/L Heber Test N/A POSITIVE Arterial Blood Oxygen Saturation 87.4 % 97.9 % Deoxyhemoglobin 12.5 % 2.1 % Carboxyhemoglobin 0.8 % 0.9 % Methemoglobin 0.0 % 0.3 % Total Hemoglobin 13.4 % 11.5 % Total Oxygen Concentration 16.3 % 15.9 % Blood Gas Temperature 37 Oxygen Delivery Method (LAB) COMFORT FLOW CPAP 16 FiO2 100 % 100 % Total Carbon Dioxide 15.6 mmol/L 13.5 mmol/L White Blood Count 15.6 10^3/uL Red Blood Count 3.66 10^6/uL Hemoglobin 10.4 g/dL Hematocrit 31.0 % Mean Corpuscular Volume 84.7 fL Mean Corpuscular Hemoglobin 28.4 pg Mean Corpuscular Hemoglobin Concent 33.5 g/dL Red Cell Distribution Width 16.8 % Platelet Count 319 10^3/uL Mean Platelet Volume 9.5 fL Prothrombin Time 11.4 SEC Prothrombin Time INR (Non-Therap) 1.1 D-Dimer 1.26 mg/L Sodium Level 138 mmol/L Potassium Level 3.6 mmol/L Chloride Level 110.0 mmol/L Carbon Dioxide Level 16.2 mmol/L Anion Gap 15.4 Blood Urea Nitrogen 26 mg/dL Creatinine 1.15 mg/dL Estimated GFR () 75.0 Est GFR (CKD-EPI)(Non-Afr [place]) 62.0 BUN/Creatinine Ratio 22.0 Glucose Level 126 mg/dL Lactic Acid Level 1.0 mmol/L Calcium Level 8.4 mg/dL Magnesium Level 1.6 mg/dL Ferritin 246 ng/mL Total Bilirubin 0.3 mg/dL Aspartate Amino Transf (AST/SGOT) 29 U/L Alanine Aminotransferase (ALT/SGPT) 22 U/L Alkaline Phosphatase 80 U/L Lactate Dehydrogenase 362 U/L Total Creatine Kinase 95 U/L Creatine Kinase MB 2.4 ng/mL Troponin I 0.20 ng/mL Total Protein 5.7 g/dL Albumin 2.0 g/dL Globulin 3.7 Albumin/Globulin Ratio 0.540 Procalcitonin 0.19 ng/mL Thyroid Stimulating Hormone (TSH) 0.613 mIU/mL Free Thyroxine 1.36 ng/dL Thyroxine (T4) 7.4 ug/dL Free Triiodothyronine (T3) Index 1.27 pg/mL Test 01/02/20 03:52 01/02/20 06:00 01/02/20 07:11 01/02/20 11:42 Blood Gas Sample Site RT RADIAL ARTERY Blood Gas pH 7.293 Blood Gas PCO2 27.7 mmHg Blood Gas PO2 84.0 mmHg Blood Gas HCO3 13.1 mmol/L Blood Gas Base Excess -12.0 mmol/L Heber Test POSITIVE Arterial Blood Oxygen Saturation 94.9 % Deoxyhemoglobin 5.1 % Carboxyhemoglobin 0.6 % Methemoglobin 0.3 % Total Hemoglobin 11.4 % Total Oxygen Concentration 15.2 % FiO2 100 % Blood Gas PEEP 15.0 CMH2O Total Carbon Dioxide 14.0 mmol/L White Blood Count 13.1 10^3/uL Red Blood Count 3.95 10^6/uL Hemoglobin 11.2 g/dL Hematocrit 33.8 % Mean Corpuscular Volume 85.6 fL Mean Corpuscular Hemoglobin 28.4 pg Mean Corpuscular Hemoglobin Concent 33.1 g/dL Red Cell Distribution Width 17.1 % Platelet Count 325 10^3/uL Mean Platelet Volume 9.7 fL Neutrophils (%) (Auto) 92.7 % Lymphocytes (%) (Auto) 4.6 % Monocytes (%) (Auto) 1.5 % Neutrophils # (Auto) 12.2 10^3/uL Lymphocytes # (Auto) 0.60 10^3/uL1 Monocytes # (Auto) 0.2 10^3/uL Absolute Immature Granulocyte (auto 0.14 10^3 u/L Absolute Eosinophils (auto) 0.0 10^3/uL Immature Granulocytes % 1.10 % Eosinophils % 0.0 % Basophils % 0.1 % Basophils # 0.0 10^3/uL Sodium Level 142 mmol/L Potassium Level 3.4 mmol/L Chloride Level 112.0 mmol/L Carbon Dioxide Level 16.8 mmol/L Anion Gap 16.6 Blood Urea Nitrogen 23 mg/dL Creatinine 1.07 mg/dL Estimated GFR () 81.5 Est GFR (CKD-EPI)(Non-Afr Faroese) 67.4 BUN/Creatinine Ratio 21.0 Glucose Level 150 mg/dL Calcium Level 8.6 mg/dL Magnesium Level 2.2 mg/dL Total Bilirubin 0.4 mg/dL Aspartate Amino Transf (AST/SGOT) 26 U/L Alanine Aminotransferase (ALT/SGPT) 24 U/L Alkaline Phosphatase 85 U/L Total Protein 6.3 g/dL Albumin 2.1 g/dL Globulin 4.2 Albumin/Globulin Ratio 0.500 Differential Total Cells Counted 100 #CELLS Segmented Neutrophils 94 % Lymphocytes 4 % Monocytes 2 % Platelet Estimate ADEQUATE Platelet Morphology NORMAL Debra Cells 2+ Bedside Glucose 131 Current Medications Medications (Trade) Dose Ordered Sig/Baldemar PRN Reason Start Time Stop Time Status Last Admin Aspirin (Aspirin) 81 mg DAILY 01/02/20 09:00 02/01/20 08:59 01/02/20 08:26 Azithromycin 500 mg/Sodium Chloride 250 ml @ 175 mls/hr Q24HRS 01/01/20 16:00 01/31/20 15:59 01/01/20 17:54 Ceftriaxone Sodium 1000 mg/ Sodium Chloride 100 ml @ 100 mls/hr Q24HRS 01/01/20 16:00 01/31/20 15:59 01/01/20 17:12 Clopidogrel Bisulfate (Plavix) 75 mg DAILY 01/02/20 09:00 02/01/20 08:59 01/02/20 08:26 Diltiazem HCl (Cardizem) 30 mg BID 01/02/20 21:00 02/01/20 20:59 Diltiazem HCl 125 mg/Sodium Chloride 125 ml @ 0 mls/hr IV 01/01/20 16:30 01/31/20 16:29 01/02/20 04:08 Famotidine (Pepcid) 20 mg BID 01/01/20 16:30 01/31/20 16:29 01/02/20 08:26 Hydromorphone HCl (Dilaudid) 1 mg Q6HR PRN PAIN 7 - 10 01/01/20 18:00 01/31/20 17:59 01/01/20 17:55 Lorazepam (Ativan) 1 mg Q4HR PRN ANXIETY 01/01/20 17:00 01/31/20 16:59 01/02/20 11:42 Potassium Chloride/Sodium Chloride 1,000 ml @ 100 mls/hr Q10H 01/01/20 18:00 01/31/20 17:59 01/02/20 14:00 Remdesivir (Eua) 100 mg/Sodium Chloride 270 ml @ 250 mls/hr DAILY 01/01/20 16:47 01/31/20 16:46 01/02/20 08:26 Rivaroxaban (Xarelto) 20 mg DAILY 01/03/20 09:00 02/02/20 08:59 Zinc Sulfate (Zinc Sulfate) 220 mg DAILY 01/02/20 09:00 02/01/20 08:59 01/02/20 08:26 LEVEL 1 SEPSIS INFECTION CRITE: ABX Therapy, Cough/Shortness of Breath LEVEL 2-SIRS (LIST ALL THAT AP: [id number] Cardiovascular Evidence: Not Assessed or None Hematologic Evidence: None/Not assessed Hepatic Evidence: None/Not assessed Metabolic Evidence: None/Not assessed Neurological Evidence: Altered Mental Status Respiratory Evidence: Acute Resp failure Renal Evidence: None/Not assessed O2 Sat by Pulse Oximetry: 100 Oxygen Flow Rate: 45.00 Assessment/Plan Assessment/Plan Assessment/Plan Assessment: 74-year-old male with acute hypoxemic respiratory failure due to COVID-19 pneumonia with extensive heart history including CABG and PR earlier this month as well as hypokalemia. Presented with shortness of breath and chest pain. Plan: A. fib with RVR: Consulted Dr. Rich with cardiology will obtain echo full dose anticoagulation with enoxaparin for now given COVID-19 positive status may transition to oral anticoagulation based on chads vas 2 score. Medical management of elevated troponin that may be due to demand ischemia rate control with diltiazem drip-->Drip stopped now. Check TSH and magnesium, replete potassium--> The left ventricular systolic function is normal LVEF is 55-60%. Chest pain: Now resolved after aspirin enoxaparin oxygen cardiology is on board will read echo in the morning no plans for any invasive cardiac work-up inpatient given Covid positive status plan to set up outpatient cardiac work-up. Will trend troponins and repeat EKG if patient again develops chest pain. No clear acute ischemic changes on EKG evaluation somewhat limited with A. fib RVR echocardiogram obtained. CTA negative for PE consistent with COVID-19 Pneumonia--> The left ventricular systolic function is normal. LVEF is 55- 60%.Dr. Rich recommends starting patient on Xarelto and Cardizem p.o. for home he left scripts in the chart for patient upon discharge he recommends further outpatient ischemic work-up when patient is stable and has recovered from his COVID-19 pneumonia COVID-19 pneumonia: We will treat with remdesivir, dexamethasone, azithromycin, ceftriaxone, full dose enoxaparin- high flow nasal cannula alternating with CPAP or BiPAP and intubation as a last resort should other respiratory interventions prove unsuccessful. Vitamin D supplementation zinc vitamin C. Blood cultures Hypokalemia: We will check mag level and repeat calcium level after IV potassium infusion has completed Reported history of alcohol abuse: Blood alcohol level was nearly undetectable we will monitor CIWA scale and treat with Ativan as indicated will initiate thiamine and folate replacement IV DVT prophylaxis with SCDs and enoxaparin GI prophylaxis with Pepcid Teleintensivist recommendations as below: 74-year-old male with acute hypoxemic respiratory failure due to COVID-19 pneumonia now on high flow o2. Plan #1 Neuro: THe pt has hx of ETOH use but no clear evidecne of etoh withdrawal right now. Continue to monitor. #2 CV: The pt is normotensive at present. He has hx of afib with RVR and was on dilt drip. Cont ASA, dilt PO and xarelto #3 Pulm: Pt has covid PNA now c/b ARDS and acute respiratory failure with hypoxia requiring CPAP 16 100% fio2. The pt is doing well on this device as well as high flow 45L 100%. WIll continue comfort flow for now. Pt received decadron, remdesivir, vit c, ceftriaxone/azithro, thiamine melatonin. If O2 sat worsens can go back to CPAP. #4 GI: Can start diet #5 Renal: Monitor for renal failure, replete lytes #6 ID: Covid + and getting remdesivir ceftriaxone and azithro #7 Endo: keep FS 150-180 #8 Heme: Tx plats >10k hgb >7, pt at risk for clotting and so will give therapuetic a/c #9 PPx: eliquis and PPI TAMY DALTON MD Jan 02, 2020 14:30
--- NOTE | 2020-01-02 15:06 | TELE.CONS ---
Consultation Reason for Consult: Reason for Consultation: Covid PNA History of Present Illness History of Patient Comments The pt is a 74 YOM with pmhx of CAD s/p CABG and AR, afib with RVR , ETOH use who presents for tachycardia and is noted to have COVID PNA. The pt has been started on ceftriaxone azithro remdesivir decadron. The pt has a hx of drinking and may have had some tremors yesterday and mild tremor this morning. He was on CPAP with high 90 sats and so was switched to high flow with similar result. The pt denies SOB and CP at present. Review of Systems Constitutional: Weakness, Malaise Eyes: No: Pain, Vision change, Conjunctivae inflammation, Eyelid inflammation, Other, Redness ENT: No: Ear pain, Ear discharge, Nose pain, Nose discharge, Nose congestion, Mouth pain, Mouth swelling, Throat pain, Throat swelling, Other Respiratory: Cough, Shortness of breath Cardiovascular: Chest Pain Gastrointestinal: Nausea, Vomiting, Diarrhea Genitourinary: No Dysuria, No Frequency, No Incontinence, No Hematuria, No Re tention, No Other Musculoskeletal: No: other, neck pain, shoulder pain, arm pain, back pain, hand pain, leg pain, foot pain Skin: No: Rash, Lesions, Jaundice, Bruising, Other Neurological: Weakness Allergies: Coded Allergies: No Known Allergies (Unverified , 01/01/20) VITALS REVIEW VITALS Vital Sign - Last 24 Hours 01/01/20 01/01/20 01/01/20 01/01/20 14:40 15:02 15:19 15:26 Pulse 112 122 Resp 26 26 B/P (MAP) 140/107 Pulse Ox 92 92 O2 Delivery Comfort Jose R Comfort Jose R O2 Flow Rate 45.00 45.00 01/01/20 01/01/20 01/01/20 01/01/20 15:45 16:00 16:15 16:20 Temp 99.3 Pulse 124 109 107 117 Resp 31 68 23 28 B/P (MAP) 140/107 (118) 129/72 (91) Pulse Ox 89 87 94 98 O2 Delivery S/T FiO2 100 01/01/20 01/01/20 01/01/20 01/01/20 16:30 16:45 17:00 17:10 Pulse 107 113 122 107 Resp 19 23 20 20 Pulse Ox 90 91 98 94 O2 Delivery S/T FiO2 100 01/01/20 01/01/20 01/01/20 01/01/20 17:12 17:12 17:15 18:47 Pulse 122 122 114 113 Resp 24 Pulse Ox 89 99 01/01/20 01/01/20 01/01/20 01/01/20 19:00 19:15 19:30 19:33 Pulse 99 103 84 94 Resp 19 B/P (MAP) 83/50 (61) 71/46 (54) 106/63 (77) Pulse Ox 100 97 98 01/01/20 01/01/20 01/01/20 01/01/20 19:45 19:55 20:00 20:15 Temp 97.9 Pulse 84 93 79 84 Resp 22 20 18 20 B/P (MAP) 71/36 (48) 86/50 (62) 108/64 (79) Pulse Ox 99 100 100 01/01/20 01/01/20 01/01/20 01/01/20 20:25 20:30 20:45 21:00 Pulse 85 79 74 Resp 23 19 20 B/P (MAP) 119/63 (81) 92/44 (60) 86/49 (61) Pulse Ox 93 95 O2 Delivery C-Pap 01/01/20 01/01/20 01/01/20 01/01/20 21:15 21:30 21:45 22:00 Pulse 59 71 65 61 Resp 19 19 19 19 B/P (MAP) 94/51 (65) 98/55 (69) 87/40 (56) 76/48 (57) Pulse Ox 95 94 94 95 01/01/20 01/01/20 01/01/20 01/01/20 22:15 22:30 22:45 22:57 Pulse 66 62 70 63 Resp 18 16 23 17 B/P (MAP) 109/60 (76) 85/42 (56) Pulse Ox 89 93 93 95 O2 Delivery CPAP FiO2 100 01/01/20 01/01/20 01/01/20 01/01/20 23:00 23:15 23:30 23:45 Pulse 85 80 76 96 Resp 23 14 19 33 B/P (MAP) 137/64 (88) 108/47 (67) 84/35 (51) 01/02/20 01/02/20 01/02/20 01/02/20 00:30 00:45 00:47 01:00 Temp 98.0 Pulse 97 82 84 Resp 46 20 22 B/P (MAP) 144/85 (104) 116/92 (100) O2 Delivery C-Pap 01/02/20 01/02/20 01/02/20 01/02/20 01:15 01:30 01:45 02:00 Pulse 77 64 71 66 Resp 22 24 21 20 B/P (MAP) 85/44 (58) 66/42 (50) 85/53 (64) 81/50 (60) Pulse Ox 100 100 100 100 01/02/20 01/02/20 01/02/20 01/02/20 02:15 02:30 02:45 03:00 Pulse 62 48 65 57 Resp 25 22 22 21 B/P (MAP) 93/60 (71) 99/51 (67) 114/42 (66) 116/60 (78) Pulse Ox 99 98 100 99 01/02/20 01/02/20 01/02/20 01/02/20 03:15 03:30 03:45 04:08 Pulse 55 48 63 60 Resp 26 23 23 B/P (MAP) 82/50 (61) 82/48 (59) Pulse Ox 96 94 98 01/02/20 01/02/20 01/02/20 01/02/20 04:15 04:23 04:30 04:45 Temp 97.9 Pulse 75 69 62 Resp 24 22 24 B/P (MAP) 126/62 (83) 100/54 (69) 94/45 (61) Pulse Ox 72 95 99 O2 Delivery C-Pap 01/02/20 01/02/20 01/02/20 01/02/20 05:00 05:15 05:19 05:30 Pulse 57 54 70 47 Resp 20 26 24 27 B/P (MAP) 90/37 (54) 74/35 (48) Pulse Ox 94 94 95 96 O2 Delivery CPAP FiO2 100 01/02/20 01/02/20 01/02/20 01/02/20 05:45 05:57 06:00 06:15 Pulse 46 51 58 47 Resp 22 22 25 22 B/P (MAP) 94/50 (65) 91/43 (59) 78/35 (49) Pulse Ox 100 98 100 96 O2 Delivery CPAP FiO2 100 01/02/20 01/02/20 01/02/20 01/02/20 06:30 06:45 07:00 07:15 Pulse 61 48 56 46 Resp 23 26 18 22 B/P (MAP) 136/52 (80) 128/56 (80) 124/44 (70) Pulse Ox 97 97 01/02/20 01/02/20 01/02/20 01/02/20 07:30 07:40 07:40 07:46 Temp 96.1 Pulse 48 66 64 66 Resp 14 22 22 33 B/P (MAP) 113/32 (59) 128/75 (92) Pulse Ox 96 95 95 90 O2 Delivery CPAP C-Pap FiO2 100 100 01/02/20 01/02/20 01/02/20 01/02/20 08:01 08:16 08:30 08:32 Pulse 60 82 78 67 Resp 18 44 24 29 B/P (MAP) 130/72 (91) 120/55 (76) 84/42 (56) 112/53 (72) Pulse Ox 95 88 53 94 01/02/20 01/02/20 01/02/20 01/02/20 08:45 09:00 09:15 09:28 Pulse 41 45 51 59 Resp 26 26 27 24 B/P (MAP) 95/58 (70) 100/73 (82) 87/38 (54) 112/64 (80) Pulse Ox 96 99 98 01/02/20 01/02/20 01/02/20 01/02/20 09:31 09:45 10:00 10:16 Pulse 61 38 55 60 Resp 30 23 26 21 B/P (MAP) 116/54 (74) 95/58 (70) 122/58 (79) 119/45 (69) Pulse Ox 98 91 99 01/02/20 01/02/20 01/02/20 01/02/20 10:31 10:46 11:00 11:15 Pulse 57 53 76 79 Resp 30 49 24 22 B/P (MAP) 137/67 (90) 109/61 (77) 105/59 (74) Pulse Ox 100 97 100 100 01/02/20 01/02/20 01/02/20 01/02/20 11:30 11:45 12:00 12:15 Pulse 87 86 95 92 Resp 18 25 27 25 B/P (MAP) 120/66 (84) 139/66 (90) 131/54 (79) 129/61 (83) Pulse Ox 97 92 78 96 01/02/20 01/02/20 01/02/20 01/02/20 12:16 12:30 12:45 13:00 Pulse 88 62 79 90 Resp 30 23 23 29 B/P (MAP) 132/62 (85) 122/70 (87) 144/73 (96) Pulse Ox 100 82 97 01/02/20 01/02/20 01/02/20 01/02/20 13:15 13:30 13:45 14:00 Pulse 78 90 91 93 Resp 24 41 26 21 B/P (MAP) 138/63 (88) 118/51 (73) 119/72 (88) 115/68 (84) Pulse Ox 91 81 89 01/02/20 01/02/20 01/02/20 14:15 14:16 14:30 Pulse 72 80 93 Resp 26 21 29 B/P (MAP) 109/67 (81) 129/84 (99) Pulse Ox 86 Intake and Output 01/02/20 06:00 Output Total 500 ml Balance -500 ml LABS LAB RESULTS Laboratory Tests Test 01/01/20 14:54 01/01/20 15:23 01/01/20 19:30 01/01/20 19:35 Urine Collection Type UNKNOWN Urine Color YELLOW Urine Appearance CLEAR Urine Bilirubin SMALL MG/DL Urine Ictotest NEGATIVE Urine Ketones 15 mg/dL Urine Specific [place] >1.030 Urine pH 6.0 Urine Protein 100 mg/dL Urine Urobilinogen 1.0 Urine Nitrate NEGATIVE Urine Leukocyte Esterase NEGATIVE Urine Blood SMALL Urine RBC 0-2 RBC/HPF Urine WBC 0-2 WBC/HPF Urine Squamous Epithelial Cells RARE #/HPF Urine Bacteria NONE SEEN Urine Glucose NORMAL Blood Gas Sample Site LR RT RADIAL ARTERY Blood Gas pH 7.328 7.359 Blood Gas PCO2 28.7 mmHg 23.2 mmHg Blood Gas PO2 55.5 mmHg 135.4 mmHg Blood Gas HCO3 14.7 mmol/L 12.8 mmol/L Blood Gas Base Excess -9.8 mmol/L -10.9 mmol/L Heber Test N/A POSITIVE Arterial Blood Oxygen Saturation 87.4 % 97.9 % Deoxyhemoglobin 12.5 % 2.1 % Carboxyhemoglobin 0.8 % 0.9 % Methemoglobin 0.0 % 0.3 % Total Hemoglobin 13.4 % 11.5 % Total Oxygen Concentration 16.3 % 15.9 % Blood Gas Temperature 37 Oxygen Delivery Method (LAB) COMFORT FLOW CPAP 16 FiO2 100 % 100 % Total Carbon Dioxide 15.6 mmol/L 13.5 mmol/L White Blood Count 15.6 10^3/uL Red Blood Count 3.66 10^6/uL Hemoglobin 10.4 g/dL Hematocrit 31.0 % Mean Corpuscular Volume 84.7 fL Mean Corpuscular Hemoglobin 28.4 pg Mean Corpuscular Hemoglobin Concent 33.5 g/dL Red Cell Distribution Width 16.8 % Platelet Count 319 10^3/uL Mean Platelet Volume 9.5 fL Prothrombin Time 11.4 SEC Prothrombin Time INR (Non-Therap) 1.1 D-Dimer 1.26 mg/L Sodium Level 138 mmol/L Potassium Level 3.6 mmol/L Chloride Level 110.0 mmol/L Carbon Dioxide Level 16.2 mmol/L Anion Gap 15.4 Blood Urea Nitrogen 26 mg/dL Creatinine 1.15 mg/dL Estimated GFR () 75.0 Est GFR (CKD-EPI)(Non-Afr Swazi) 62.0 BUN/Creatinine Ratio 22.0 Glucose Level 126 mg/dL Lactic Acid Level 1.0 mmol/L Calcium Level 8.4 mg/dL Magnesium Level 1.6 mg/dL Ferritin 246 ng/mL Total Bilirubin 0.3 mg/dL Aspartate Amino Transf (AST/SGOT) 29 U/L Alanine Aminotransferase (ALT/SGPT) 22 U/L Alkaline Phosphatase 80 U/L Lactate Dehydrogenase 362 U/L Total Creatine Kinase 95 U/L Creatine Kinase MB 2.4 ng/mL Troponin I 0.20 ng/mL Total Protein 5.7 g/dL Albumin 2.0 g/dL Globulin 3.7 Albumin/Globulin Ratio 0.540 Procalcitonin 0.19 ng/mL Thyroid Stimulating Hormone (TSH) 0.613 mIU/mL Free Thyroxine 1.36 ng/dL Thyroxine (T4) 7.4 ug/dL Free Triiodothyronine (T3) Index 1.27 pg/mL Test 01/02/20 03:52 01/02/20 06:00 01/02/20 07:11 01/02/20 11:42 Blood Gas Sample Site RT RADIAL ARTERY Blood Gas pH 7.293 Blood Gas PCO2 27.7 mmHg Blood Gas PO2 84.0 mmHg Blood Gas HCO3 13.1 mmol/L Blood Gas Base Excess -12.0 mmol/L Heber Test POSITIVE Arterial Blood Oxygen Saturation 94.9 % Deoxyhemoglobin 5.1 % Carboxyhemoglobin 0.6 % Methemoglobin 0.3 % Total Hemoglobin 11.4 % Total Oxygen Concentration 15.2 % FiO2 100 % Blood Gas PEEP 15.0 CMH2O Total Carbon Dioxide 14.0 mmol/L White Blood Count 13.1 10^3/uL Red Blood Count 3.95 10^6/uL Hemoglobin 11.2 g/dL Hematocrit 33.8 % Mean Corpuscular Volume 85.6 fL Mean Corpuscular Hemoglobin 28.4 pg Mean Corpuscular Hemoglobin Concent 33.1 g/dL Red Cell Distribution Width 17.1 % Platelet Count 325 10^3/uL Mean Platelet Volume 9.7 fL Neutrophils (%) (Auto) 92.7 % Lymphocytes (%) (Auto) 4.6 % Monocytes (%) (Auto) 1.5 % Neutrophils # (Auto) 12.2 10^3/uL Lymphocytes # (Auto) 0.60 10^3/uL1 Monocytes # (Auto) 0.2 10^3/uL Absolute Immature Granulocyte (auto 0.14 10^3 u/L Absolute Eosinophils (auto) 0.0 10^3/uL Immature Granulocytes % 1.10 % Eosinophils % 0.0 % Basophils % 0.1 % Basophils # 0.0 10^3/uL Sodium Level 142 mmol/L Potassium Level 3.4 mmol/L Chloride Level 112.0 mmol/L Carbon Dioxide Level 16.8 mmol/L Anion Gap 16.6 Blood Urea Nitrogen 23 mg/dL Creatinine 1.07 mg/dL Estimated GFR () 81.5 Est GFR (CKD-EPI)(Non-Afr Swazi) 67.4 BUN/Creatinine Ratio 21.0 Glucose Level 150 mg/dL Calcium Level 8.6 mg/dL Magnesium Level 2.2 mg/dL Total Bilirubin 0.4 mg/dL Aspartate Amino Transf (AST/SGOT) 26 U/L Alanine Aminotransferase (ALT/SGPT) 24 U/L Alkaline Phosphatase 85 U/L Total Protein 6.3 g/dL Albumin 2.1 g/dL Globulin 4.2 Albumin/Globulin Ratio 0.500 Differential Total Cells Counted 100 #CELLS Segmented Neutrophils 94 % Lymphocytes 4 % Monocytes 2 % Platelet Estimate ADEQUATE Platelet Morphology NORMAL Debra Cells 2+ Bedside Glucose 131 Current Medications Medications (Trade) Dose Ordered Sig/Baldemar Route PRN Reason Start Time Stop Time Status Last Admin Dose Admin Metoprolol Tartrate (Lopresser) 3 mg STAT STAT IVP 01/01/20 15:07 01/01/20 16:08 DC 01/01/20 15:19 Ceftriaxone Sodium 1000 mg/ Sodium Chloride 100 ml @ 100 mls/hr Q24HRS IV 01/01/20 16:00 01/31/20 15:59 01/01/20 17:12 Azithromycin 500 mg/Sodium Chloride 250 ml @ 175 mls/hr Q24HRS IV 01/01/20 16:00 01/31/20 15:59 01/01/20 17:54 Diltiazem HCl (Cardizem) 10 mg STAT STAT IV 01/01/20 16:23 01/01/20 16:48 DC 01/01/20 17:12 Diltiazem HCl 125 mg/Sodium Chloride 125 ml @ 0 mls/hr IV 01/01/20 16:30 01/31/20 16:29 01/02/20 04:08 Lorazepam (Ativan) 1 mg STAT STAT IV 01/01/20 16:25 01/01/20 16:48 DC 01/01/20 16:25 Enoxaparin Sodium (Lovenox) 75 mg BID SQ 01/01/20 16:30 01/02/20 10:40 DC 01/02/20 08:27 Famotidine (Pepcid) 20 mg BID IV 01/01/20 16:30 01/31/20 16:29 01/02/20 08:26 Remdesivir (Eua) 100 mg/Sodium Chloride 270 ml @ 250 mls/hr DAILY IV 01/01/20 16:47 01/31/20 16:46 01/02/20 08:26 Lorazepam (Ativan) 1 mg Q4HR PRN IV ANXIETY 01/01/20 17:00 01/31/20 16:59 01/02/20 11:42 Diltiazem HCl (Cardizem) 125 mg STK-MED ONCE .ROUTE 01/01/20 16:44 01/01/20 16:45 DC Diltiazem HCl (Diltiazem HCl) 50 mg STK-MED ONCE IV 01/01/20 16:44 01/01/20 16:46 DC Potassium Chloride/Sodium Chloride 1,000 ml @ 100 mls/hr Q10H IV 01/01/20 18:00 01/31/20 17:59 01/02/20 14:00 Hydromorphone HCl (Dilaudid) 2 mg STK-MED ONCE .ROUTE 01/01/20 17:50 01/01/20 17:52 DC Hydromorphone HCl (Dilaudid) 1 mg Q6HR PRN IV PAIN 7 - 10 01/01/20 18:00 01/31/20 17:59 01/01/20 17:55 Ergocalciferol (Vitamin D2) 50,000 unit DAILY24 PO 01/01/20 18:00 01/01/20 18:24 DC Zinc Sulfate (Zinc Sulfate) 220 mg DAILY PO 01/02/20 09:00 02/01/20 08:59 01/02/20 08:26 Aspirin (Aspirin) 81 mg DAILY PO 01/02/20 09:00 02/01/20 08:59 01/02/20 08:26 Clopidogrel Bisulfate (Plavix) 75 mg DAILY PO 01/02/20 09:00 02/01/20 08:59 01/02/20 08:26 Thiamine HCl (Thiamine HCl) 100 mg STAT STAT IV 01/01/20 17:52 01/01/20 18:24 DC Folic Acid (Folic Acid) 1 mg OT ONCE IV 01/01/20 18:00 01/01/20 18:24 DC Multivit Infusn,Adult 4,Vit K 10 ml/ Thiamine HCl 100 mg/Folic Acid 1 mg/Sodium Chloride 1,011.2 ml @ 100 mls/ hr Q10H7M IV 01/01/20 18:30 01/02/20 04:36 DC 01/01/20 20:12 Sodium Chloride 1,000 ml @ 1,000 mls/hr Q1H ONCE IV 01/01/20 18:30 01/01/20 19:29 DC 01/01/20 18:31 Magnesium Sulfate/ Dextrose 100 ml @ 100 mls/hr OT ONCE IV 01/01/20 21:00 01/01/20 21:59 DC 01/01/20 20:58 Sodium Chloride 100 ml @ ud STK-MED ONCE IV 01/01/20 20:53 01/01/20 20:55 DC Magnesium Sulfate 50 ml @ ud STK-MED ONCE IV 01/01/20 20:55 01/01/20 20:56 DC Sodium Chloride 100 ml @ ud STK-MED ONCE IV 01/02/20 04:02 01/02/20 04:04 DC Diltiazem HCl (Cardizem) 125 mg STK-MED ONCE .ROUTE 01/02/20 04:02 01/02/20 04:04 DC Atropine Sulfate (Atropine Sulfate) 1 mg STAT STAT IV 01/02/20 10:06 01/02/20 10:11 DC 01/02/20 11:12 Rivaroxaban (Xarelto) 20 mg DAILY PO 01/03/20 09:00 02/02/20 08:59 Diltiazem HCl (Cardizem) 30 mg BID PO 01/02/20 21:00 02/01/20 20:59 VTE VTE Risk Total Score: 5 VTE Risk Score VTE Risk: Score 0-1 = Low Risk (Aggressive mobilization; early ambulation; no VTE prophylaxis required) Score 2: Moderate Risk (Intermittent/Pneumatic Compression Device OR Lovenox/Heparin/Coumadin) Score 3-4: High Risk (Intermittent/Pneumatic Compression Device AND Lovenox/Heparin/Coumadin) Score > or =5: Highest Risk (Intermittent/Pneumatic Compression Device AND Lovenox/Heparin/Coumadin) Antico:Hep/LMWH/Coum/Xarelto: Yes Mechanical device ordered: Yes VTE VTE Present on Admission: No Currently receiving anticoagul: No VTE Risk Total Score: 5 Antico:Hep/LMWH/Coum/Xarelto: Yes Mechanical device ordered: Yes Assessment/Plan Assessment/Plan Assessment/Plan 74-year-old male with acute hypoxemic respiratory failure due to COVID-19 pneumonia now on high flow o2. Plan #1 Neuro: THe pt has hx of ETOH use but no clear evidecne of etoh withdrawal right now. Continue to monitor. #2 CV: The pt is normotensive at present. He has hx of afib with RVR and was on dilt drip. Cont ASA, dilt PO and xarelto #3 Pulm: Pt has covid PNA now c/b ARDS and acute respiratory failure with hypoxia requiring CPAP 16 100% fio2. The pt is doing well on this device as well as high flow 45L 100%. WIll continue comfort flow for now. Pt received decadron, remdesivir, vit c, ceftriaxone/azithro, thiamine melatonin. If O2 sat worsens can go back to CPAP. #4 GI: Can start diet #5 Renal: Monitor for renal failure, replete lytes #6 ID: Covid + and getting remdesivir ceftriaxone and azithro #7 Endo: keep FS 150-180 #8 Heme: Tx plats >10k hgb >7, pt at risk for clotting and so will give therapuetic a/c #9 PPx: eliquis and PPI I discussed pt with FLOOR NURSE and completed the video assessment with assistance from the FLOOR NURSE. I spent a total of greater than 60 minutes formulating critical care for this patient today. I saw this patient and completed a full visual exam via audio-visual HIPAA compliant technology. Meds/Labs/Orders Medication List: Current Medications Medications (Trade) Dose Ordered Sig/Baldemar PRN Reason Start Time Stop Time Status Last Admin Aspirin (Aspirin) 81 mg DAILY 01/02/20 09:00 02/01/20 08:59 01/02/20 08:26 Azithromycin 500 mg/Sodium Chloride 250 ml @ 175 mls/hr Q24HRS 01/01/20 16:00 01/31/20 15:59 01/01/20 17:54 Ceftriaxone Sodium 1000 mg/ Sodium Chloride 100 ml @ 100 mls/hr Q24HRS 01/01/20 16:00 01/31/20 15:59 01/01/20 17:12 Clopidogrel Bisulfate (Plavix) 75 mg DAILY 01/02/20 09:00 02/01/20 08:59 01/02/20 08:26 Diltiazem HCl (Cardizem) 30 mg BID 01/02/20 21:00 02/01/20 20:59 Diltiazem HCl 125 mg/Sodium Chloride 125 ml @ 0 mls/hr IV 01/01/20 16:30 01/31/20 16:29 01/02/20 04:08 Famotidine (Pepcid) 20 mg BID 01/01/20 16:30 01/31/20 16:29 01/02/20 08:26 Hydromorphone HCl (Dilaudid) 1 mg Q6HR PRN PAIN 7 - 10 01/01/20 18:00 01/31/20 17:59 01/01/20 17:55 Lorazepam (Ativan) 1 mg Q4HR PRN ANXIETY 01/01/20 17:00 01/31/20 16:59 01/02/20 11:42 Potassium Chloride/Sodium Chloride 1,000 ml @ 100 mls/hr Q10H 01/01/20 18:00 01/31/20 17:59 01/02/20 14:00 Remdesivir (Eua) 100 mg/Sodium Chloride 270 ml @ 250 mls/hr DAILY 01/01/20 16:47 01/31/20 16:46 01/02/20 08:26 Rivaroxaban (Xarelto) 20 mg DAILY 01/03/20 09:00 02/02/20 08:59 Zinc Sulfate (Zinc Sulfate) 220 mg DAILY 01/02/20 09:00 02/01/20 08:59 01/02/20 08:26 Lab results: Laboratory Tests Test 01/01/20 14:54 01/01/20 15:23 01/01/20 19:30 01/01/20 19:35 Urine Collection Type UNKNOWN Urine Color YELLOW Urine Appearance CLEAR Urine Bilirubin SMALL MG/DL Urine Ictotest NEGATIVE Urine Ketones 15 mg/dL Urine Specific [place] >1.030 Urine pH 6.0 Urine Protein 100 mg/dL Urine Urobilinogen 1.0 Urine Nitrate NEGATIVE Urine Leukocyte Esterase NEGATIVE Urine Blood SMALL Urine RBC 0-2 RBC/HPF Urine WBC 0-2 WBC/HPF Urine Squamous Epithelial Cells RARE #/HPF Urine Bacteria NONE SEEN Urine Glucose NORMAL Blood Gas Sample Site LR RT RADIAL ARTERY Blood Gas pH 7.328 7.359 Blood Gas PCO2 28.7 mmHg 23.2 mmHg Blood Gas PO2 55.5 mmHg 135.4 mmHg Blood Gas HCO3 14.7 mmol/L 12.8 mmol/L Blood Gas Base Excess -9.8 mmol/L -10.9 mmol/L Heber Test N/A POSITIVE Arterial Blood Oxygen Saturation 87.4 % 97.9 % Deoxyhemoglobin 12.5 % 2.1 % Carboxyhemoglobin 0.8 % 0.9 % Methemoglobin 0.0 % 0.3 % Total Hemoglobin 13.4 % 11.5 % Total Oxygen Concentration 16.3 % 15.9 % Blood Gas Temperature 37 Oxygen Delivery Method (LAB) COMFORT FLOW CPAP 16 FiO2 100 % 100 % Total Carbon Dioxide 15.6 mmol/L 13.5 mmol/L White Blood Count 15.6 10^3/uL Red Blood Count 3.66 10^6/uL Hemoglobin 10.4 g/dL Hematocrit 31.0 % Mean Corpuscular Volume 84.7 fL Mean Corpuscular Hemoglobin 28.4 pg Mean Corpuscular Hemoglobin Concent 33.5 g/dL Red Cell Distribution Width 16.8 % Platelet Count 319 10^3/uL Mean Platelet Volume 9.5 fL Prothrombin Time 11.4 SEC Prothrombin Time INR (Non-Therap) 1.1 D-Dimer 1.26 mg/L Sodium Level 138 mmol/L Potassium Level 3.6 mmol/L Chloride Level 110.0 mmol/L Carbon Dioxide Level 16.2 mmol/L Anion Gap 15.4 Blood Urea Nitrogen 26 mg/dL Creatinine 1.15 mg/dL Estimated GFR () 75.0 Est GFR (CKD-EPI)(Non-Afr Swazi) 62.0 BUN/Creatinine Ratio 22.0 Glucose Level 126 mg/dL Lactic Acid Level 1.0 mmol/L Calcium Level 8.4 mg/dL Magnesium Level 1.6 mg/dL Ferritin 246 ng/mL Total Bilirubin 0.3 mg/dL Aspartate Amino Transf (AST/SGOT) 29 U/L Alanine Aminotransferase (ALT/SGPT) 22 U/L Alkaline Phosphatase 80 U/L Lactate Dehydrogenase 362 U/L Total Creatine Kinase 95 U/L Creatine Kinase MB 2.4 ng/mL Troponin I 0.20 ng/mL Total Protein 5.7 g/dL Albumin 2.0 g/dL Globulin 3.7 Albumin/Globulin Ratio 0.540 Procalcitonin 0.19 ng/mL Thyroid Stimulating Hormone (TSH) 0.613 mIU/mL Free Thyroxine 1.36 ng/dL Thyroxine (T4) 7.4 ug/dL Free Triiodothyronine (T3) Index 1.27 pg/mL Test 01/02/20 03:52 01/02/20 06:00 01/02/20 07:11 01/02/20 11:42 Blood Gas Sample Site RT RADIAL ARTERY Blood Gas pH 7.293 Blood Gas PCO2 27.7 mmHg Blood Gas PO2 84.0 mmHg Blood Gas HCO3 13.1 mmol/L Blood Gas Base Excess -12.0 mmol/L Heber Test POSITIVE Arterial Blood Oxygen Saturation 94.9 % Deoxyhemoglobin 5.1 % Carboxyhemoglobin 0.6 % Methemoglobin 0.3 % Total Hemoglobin 11.4 % Total Oxygen Concentration 15.2 % FiO2 100 % Blood Gas PEEP 15.0 CMH2O Total Carbon Dioxide 14.0 mmol/L White Blood Count 13.1 10^3/uL Red Blood Count 3.95 10^6/uL Hemoglobin 11.2 g/dL Hematocrit 33.8 % Mean Corpuscular Volume 85.6 fL Mean Corpuscular Hemoglobin 28.4 pg Mean Corpuscular Hemoglobin Concent 33.1 g/dL Red Cell Distribution Width 17.1 % Platelet Count 325 10^3/uL Mean Platelet Volume 9.7 fL Neutrophils (%) (Auto) 92.7 % Lymphocytes (%) (Auto) 4.6 % Monocytes (%) (Auto) 1.5 % Neutrophils # (Auto) 12.2 10^3/uL Lymphocytes # (Auto) 0.60 10^3/uL1 Monocytes # (Auto) 0.2 10^3/uL Absolute Immature Granulocyte (auto 0.14 10^3 u/L Absolute Eosinophils (auto) 0.0 10^3/uL Immature Granulocytes % 1.10 % Eosinophils % 0.0 % Basophils % 0.1 % Basophils # 0.0 10^3/uL Sodium Level 142 mmol/L Potassium Level 3.4 mmol/L Chloride Level 112.0 mmol/L Carbon Dioxide Level 16.8 mmol/L Anion Gap 16.6 Blood Urea Nitrogen 23 mg/dL Creatinine 1.07 mg/dL Estimated GFR () 81.5 Est GFR (CKD-EPI)(Non-Afr Swazi) 67.4 BUN/Creatinine Ratio 21.0 Glucose Level 150 mg/dL Calcium Level 8.6 mg/dL Magnesium Level 2.2 mg/dL Total Bilirubin 0.4 mg/dL Aspartate Amino Transf (AST/SGOT) 26 U/L Alanine Aminotransferase (ALT/SGPT) 24 U/L Alkaline Phosphatase 85 U/L Total Protein 6.3 g/dL Albumin 2.1 g/dL Globulin 4.2 Albumin/Globulin Ratio 0.500 Differential Total Cells Counted 100 #CELLS Segmented Neutrophils 94 % Lymphocytes 4 % Monocytes 2 % Platelet Estimate ADEQUATE Platelet Morphology NORMAL Debra Cells 2+ Bedside Glucose 131 GEORGE MONCADA MD Jan 02, 2020 15:06
--- NOTE | 2020-01-02 15:59 | NUR ---
Patient at 1040 on satting well on 45/100% comfort flow, ate 15 percent of lunch, and drank small amount of fluids 240/ Left patient on comfort flow satting in the high 90's. Problem with o2 reading patient seemed to be cold, placed blanket on patient, new ear probe, and new o2 line, checked temperature 97.7. O2 sat at 97. Resident around 1415 removed comfort flow while restrained, BP 151/110. Placed cipap back on resident o2 sat back in the 90's. BP remained 150's/ over 60's. HR at 80 's. Patient became agitated with cipap gave 1 mg of ativan. Patient resting in room. Still having hard time reading getting a o2 sat.
[2020-01-02] MEDS: ZITHROMAX 500 MG in NS 250ML 250 ML IV SCH (16:00)
[2020-01-02] MEDS: ROCEPHIN 1,000 MG in NS 100ML 100 ML IV SCH (16:00)
[2020-01-02] MEDS ORDERED: D5W 1000ML/KCL 20MEQ 1,000 ML IV SCH (16:00)
--- NOTE | 2020-01-02 18:50 | NUR ---
RECEIVED PATIENT REPORT FROM HUMA ACOSTA RN. PATIENT IN COMFORT FLOW, 45L FIO2 100%, ON BILATERAL WRISTS SOFT RESTRAINTS. BOTH RADIAL PULSES GOOD AND PALPABLE. SKIN COLOR WNL. GOOD AP REFILLS <3SECS TO ALL DIGITS. ASSUMED CARE.
--- NOTE | 2020-01-02 20:39 | CNH ---
DATE OF CONSULTATION: 01/02/2020 REASON FOR CONSULTATION: Atrial fibrillation with rapid ventricular response/COVID-19 coronavirus infection. HISTORY OF PRESENT ILLNESS: This is a 74-year-old male who presented initially to an outside hospital with progressively worsening shortness of breath and palpitations. He was found to be in atrial fibrillation with rapid ventricular response, which was subsequently treated with metoprolol and Cardizem bolus administered. Chest x-ray confirmed findings consistent with COVID-19, coronavirus pneumonia. The patient subsequently tested positive for COVID-19 virus. The patient was then transferred to [facility] for admission to the ICU for progressively worsening shortness of breath. He was noted to have mildly elevated troponins secondary to active COVID infection. He was also noted to be in atrial fibrillation with rapid ventricular response with heart rates in the 160s. Consultation has been placed to Cardiology service for evaluation for AFib. PAST MEDICAL HISTORY: Significant for: 1. Known history of coronary artery disease, status post coronary artery bypass graft x 4. 2. Known history of multiple PCIs in the past. 3. Hyperlipidemia. 4. Hypertension. 5. History of myocardial infarction, 09/2018. 6. Known history of atrial fibrillation. PAST SURGICAL HISTORY: Significant for: 1. Coronary artery bypass graft surgery x 4. 2. Multiple PCIs in the past. ALLERGIES: He has no known drug allergies. MEDICATIONS: He takes at home includes: 1. Plavix 75 mg daily. 2. Carvedilol 6.25 b.i.d. 3. Lisinopril 10 mg daily. 4. Lipitor 20 mg nightly. 5. Isosorbide dinitrate 20 mg daily. 6. Tylenol with Codeine. 7. Nifedipine 30 mg ER daily. 8. Aspirin 81 mg daily. 9. Gabapentin 300 mg t.i.d. 10. Allopurinol 100 mg twice daily. FAMILY HISTORY: Denies any family history of premature coronary artery disease or sudden cardiac . SOCIAL HISTORY: Denies alcohol use, denies illicit drug use, denies tobacco use. REVIEW OF SYSTEMS: As per HPI and as per previous records. All systems reviewed and negative for interval change. PHYSICAL EXAMINATION: VITAL SIGNS: Blood pressure is 119/45, respiratory rate is 21, pulse is 60 beats per minute, oxygen saturation is 99%. GENERAL: I see no apparent distress, alert and oriented x 3. HEENT: Normocephalic, atraumatic. Extraocular muscles intact. Pupils equally round, reactive to light and accommodation. HEART: S1, S2 irregularly irregular. LUNGS: Decreased breath sounds bilaterally. ABDOMEN: Soft, nontender, nondistended. Positive bowel sounds in all 4 quadrants. EXTREMITIES: No cyanosis, no clubbing, no edema. +2 pedal pulses palpable bilaterally. NEUROLOGIC: No neurological deficits. Sensation is intact. IMPRESSION: 1. Atrial fibrillation with rapid ventricular response - now currently with controlled ventricular response. 2. CHADS2-VASc score of 3. 3. Known history of coronary artery disease, status post coronary artery bypass graft x 4. 4. Multiple percutaneous coronary interventions in the past. 5. Hypertension. 6. Hyperlipidemia. 7. Active COVID-19 coronavirus infection. 8. Known history of myocardial infarction in 09/2018. RECOMMENDATIONS: This is a 74-year-old male who is currently being treated for active COVID-19 coronavirus infection. He is currently receiving remdesivir as well as dexamethasone therapies for COVID-19 infection. He was noted to be in atrial fibrillation with rapid ventricular response. This appears to be old for him. He was initially started on Cardizem drip; however, aruna'd down to the 30s and so a Cardizem drip was discontinued. His heart rate right now is between 60s-80s and he is not on any rate controlling medications. Given his high CHADS2-VASc score of 3, I am going to start him on Xarelto 20 mg p.o. daily for oral anticoagulation. I would hold off on rate controlling meds for now given his low running heart rates. He has a known history of coronary artery disease, with multiple PCIs in the past as well as coronary artery bypass graft surgery in the past. He denies any active chest pain at this time. He is reported mildly elevated troponins, it is likely secondary to active COVID-19 infection. EKG does not show any signs of myocardial ischemia. A 2D echo that was obtained this admission revealed the left ventricular ejection fraction of 55-60% with no evidence of wall motion abnormalities. In view of these, no invasive cardiac workup is planned at this time. I would recommend to continue treatment for active COVID-19 coronavirus infection. Eventually, when he gets discharged after treatment has been successfully completed, he would benefit from outpatient cardiac ischemic workup to rule out an ischemic substrate. This will be pursued in the outpatient setting. No further cardiac workup is necessary at this time. I will follow peripherally. ALEK BROWN D.O. DR: [place] JOB# [id number]
[2020-01-02] MEDS ORDERED: MELATONIN PO PRN (21:00)
[2020-01-02] MEDS: CARDIZEM PO SCH (21:00)
[2020-01-02] MEDS: VITAMIN C PO SCH (21:00)
[2020-01-02] MEDS: DILAUDID IV PRN (22:30)
--- NOTE | 2020-01-02 22:30 | NUR ---
BOWEL MOVEMENT PATIENT HAD LOOSE BOWEL MOVEMENT, BROWN STOOL, MODERATE AMOUNT. CLEANED PATIENT ACCORDINGLY. WHILE PATIENT IS OFF RESTRAINTS TO TURN PATIENT TO SIDE DURING CLEANING, HE PULLED OUT HIS LEFT 20G AC IV SITE. NOTED IV CATHETER INTACT.
--- NOTE | 2020-01-02 23:30 | NUR ---
DR GRANDA IN THE UNIT NOTIFIED THAT PATIENT IS CONFUSED, UNABLE TO FOLLOW COMMAND TO TAKE CARDIZEM AND VITAMIN C DOSE. RECEIVED ORDER TO HOLD DOSE FOR TONIGHT. RBVO
[2020-01-03] VITALS (60 sets, daily range): BP systolic 103–222; BP diastolic 57–163
--- NOTE | 2020-01-03 05:00 | NUR ---
ATTEMPTED TO INSERT IV 5X BUT TO NO AVAIL.
[2020-01-03] MEDS: ATIVAN IV PRN ×2 (06:15→17:00)
--- NOTE | 2020-01-03 06:30 | NUR ---
REPORT TO Micah WILLIS RN
[2020-01-03 07:06] LABS: ABG PCO2 25.3 mmHg (35.0-45.0); ABG PH 7.341 (7.350-7.450); BE(B) -10.7 mmol/L (-2.0-2.0); HCO3act 13.4 mmol/L (22.0-26.0); pO2 53.4 mmHg (80.0-100.0)
[2020-01-03] MEDS: VITAMIN C PO SCH ×2 (08:43→21:00)
[2020-01-03] MEDS: ZINC SULFATE PO SCH (08:43)
[2020-01-03] MEDS: CARDIZEM PO SCH ×2 (08:45→21:00)
[2020-01-03] MEDS ORDERED: XARELTO PO SCH (09:00)
[2020-01-03] MEDS: PEPCID IV SCH ×2 (12:44→20:39)
[2020-01-03] MEDS: NS 1000 ML/KCL 40MEQ 1,000 ML IV SCH ×3 (12:44→20:00)
[2020-01-03] MEDS: REMDESIVIR (EUA) 100 MG in NS 250ML 250 ML IV SCH (12:45)
--- NOTE | 2020-01-03 13:59 | TELE.CONS ---
Consultation History of Present Illness History of Patient Comments The pt is a 74 YOM with pmhx of CAD s/p CABG and IN, afib with RVR , ETOH use who presents for tachycardia and is noted to have COVID PNA. The pt has been started on ceftriaxone azithro remdesivir decadron. The pt has a hx of drinking and may have had some tremors yesterday and mild tremor this morning. He was on CPAP with high 90 sats and so was switched to high flow with similar result. Review of Systems Constitutional: Weakness, Malaise Eyes: No: Pain, Vision change, Conjunctivae inflammation, Eyelid inflammation, Other, Redness ENT: No: Ear pain, Ear discharge, Nose pain, Nose discharge, Nose congestion, Mouth pain, Mouth swelling, Throat pain, Throat swelling, Other Respiratory: Cough, Shortness of breath Cardiovascular: Chest Pain Gastrointestinal: Nausea, Vomiting, Diarrhea Genitourinary: No Dysuria, No Frequency, No Incontinence, No Hematuria, No Re tention, No Other Musculoskeletal: No: other, neck pain, shoulder pain, arm pain, back pain, hand pain, leg pain, foot pain Skin: No: Rash, Lesions, Jaundice, Bruising, Other Neurological: Weakness Allergies: Coded Allergies: No Known Allergies (Unverified , 01/01/20) VITALS REVIEW VITALS Vital Sign - Last 24 Hours 01/01/20 01/01/20 01/01/20 01/01/20 14:40 15:02 15:19 15:26 Pulse 112 122 Resp 26 26 B/P (MAP) 140/107 Pulse Ox 92 92 O2 Delivery Comfort Jose R Comfort Jose R O2 Flow Rate 45.00 45.00 01/01/20 01/01/20 01/01/20 01/01/20 15:45 16:00 16:15 16:20 Temp 99.3 Pulse 124 109 107 117 Resp 31 68 23 28 B/P (MAP) 140/107 (118) 129/72 (91) Pulse Ox 89 87 94 98 O2 Delivery S/T FiO2 100 01/01/20 01/01/20 01/01/20 01/01/20 16:30 16:45 17:00 17:10 Pulse 107 113 122 107 Resp 19 23 20 20 Pulse Ox 90 91 98 94 O2 Delivery S/T FiO2 100 01/01/20 01/01/20 01/01/20 01/01/20 17:12 17:12 17:15 18:47 Pulse 122 122 114 113 Resp 25 24 Pulse Ox 89 99 01/01/20 01/01/20 01/01/20 01/01/20 19:00 19:15 19:30 19:33 Pulse 99 103 84 94 Resp 27 19 B/P (MAP) 83/50 (61) 71/46 (54) 106/63 (77) Pulse Ox 100 97 98 01/01/20 01/01/20 01/01/20 01/01/20 19:45 19:55 20:00 20:15 Temp 97.9 Pulse 84 93 79 84 Resp 22 20 18 20 B/P (MAP) 71/36 (48) 86/50 (62) 108/64 (79) Pulse Ox 99 100 100 01/01/20 01/01/20 01/01/20 01/01/20 20:25 20:30 20:45 21:00 Pulse 85 79 74 Resp 23 19 20 B/P (MAP) 119/63 (81) 92/44 (60) 86/49 (61) Pulse Ox 93 95 O2 Delivery C-Pap 01/01/20 01/01/20 01/01/20 01/01/20 21:15 21:30 21:45 22:00 Pulse 59 71 65 61 Resp 19 19 19 19 B/P (MAP) 94/51 (65) 98/55 (69) 87/40 (56) 76/48 (57) Pulse Ox 95 94 94 95 01/01/20 01/01/20 01/01/20 01/01/20 22:15 22:30 22:45 22:57 Pulse 66 62 70 63 Resp 18 16 23 17 B/P (MAP) 109/60 (76) 85/42 (56) Pulse Ox 89 93 93 95 O2 Delivery CPAP FiO2 100 01/01/20 01/01/20 01/01/20 01/01/20 23:00 23:15 23:30 23:45 Pulse 85 80 76 96 Resp 23 14 19 33 B/P (MAP) 137/64 (88) 108/47 (67) 84/35 (51) 01/02/20 01/02/20 01/02/20 01/02/20 00:30 00:45 00:47 01:00 Temp 98.0 Pulse 97 82 84 Resp 46 20 22 B/P (MAP) 144/85 (104) 116/92 (100) O2 Delivery C-Pap 01/02/20 01/02/20 01/02/20 01/02/20 01:15 01:30 01:45 02:00 Pulse 77 64 71 66 Resp 22 24 21 20 B/P (MAP) 85/44 (58) 66/42 (50) 85/53 (64) 81/50 (60) Pulse Ox 100 100 100 100 01/02/20 01/02/20 01/02/20 01/02/20 02:15 02:30 02:45 03:00 Pulse 62 48 65 57 Resp 25 22 22 21 B/P (MAP) 93/60 (71) 99/51 (67) 114/42 (66) 116/60 (78) Pulse Ox 99 98 100 99 01/02/20 01/02/20 01/02/20 01/02/20 03:15 03:30 03:45 04:08 Pulse 55 48 63 60 Resp 26 23 23 B/P (MAP) 82/50 (61) 82/48 (59) Pulse Ox 96 94 98 01/02/20 01/02/20 01/02/20 01/02/20 04:15 04:23 04:30 04:45 Temp 97.9 Pulse 75 69 62 Resp 24 22 24 B/P (MAP) 126/62 (83) 100/54 (69) 94/45 (61) Pulse Ox 72 95 99 O2 Delivery C-Pap 01/02/20 01/02/20 01/02/20 01/02/20 05:00 05:15 05:19 05:30 Pulse 57 54 70 47 Resp 20 26 24 27 B/P (MAP) 90/37 (54) 74/35 (48) Pulse Ox 94 94 95 96 O2 Delivery CPAP FiO2 100 01/02/20 01/02/20 01/02/20 01/02/20 05:45 05:57 06:00 06:15 Pulse 46 51 58 47 Resp 22 22 25 22 B/P (MAP) 94/50 (65) 91/43 (59) 78/35 (49) Pulse Ox 100 98 100 96 O2 Delivery CPAP FiO2 100 01/02/20 01/02/20 01/02/20 01/02/20 06:30 06:45 07:00 07:15 Pulse 61 48 56 46 Resp 23 26 18 22 B/P (MAP) 136/52 (80) 128/56 (80) 124/44 (70) Pulse Ox 97 97 01/02/20 01/02/20 01/02/20 01/02/20 07:30 07:40 07:40 07:46 Temp 96.1 Pulse 48 66 64 66 Resp 14 22 22 33 B/P (MAP) 113/32 (59) 128/75 (92) Pulse Ox 96 95 95 90 O2 Delivery CPAP C-Pap FiO2 100 100 01/02/20 01/02/20 01/02/20 01/02/20 08:01 08:16 08:30 08:32 Pulse 60 82 78 67 Resp 18 44 24 29 B/P (MAP) 130/72 (91) 120/55 (76) 84/42 (56) 112/53 (72) Pulse Ox 95 88 53 94 01/02/20 01/02/20 01/02/20 01/02/20 08:45 09:00 09:15 09:28 Pulse 41 45 51 59 Resp 26 26 27 24 B/P (MAP) 95/58 (70) 100/73 (82) 87/38 (54) 112/64 (80) Pulse Ox 96 99 98 01/02/20 01/02/20 01/02/20 01/02/20 09:31 09:45 10:00 10:16 Pulse 61 38 55 60 Resp 30 23 26 21 B/P (MAP) 116/54 (74) 95/58 (70) 122/58 (79) 119/45 (69) Pulse Ox 98 91 99 01/02/20 01/02/20 01/02/20 01/02/20 10:31 10:46 11:00 11:15 Pulse 57 53 76 79 Resp 30 49 24 22 B/P (MAP) 137/67 (90) 109/61 (77) 105/59 (74) Pulse Ox 100 97 100 100 01/02/20 01/02/20 01/02/20 01/02/20 11:30 11:45 12:00 12:15 Pulse 87 86 95 92 Resp 18 25 27 25 B/P (MAP) 120/66 (84) 139/66 (90) 131/54 (79) 129/61 (83) Pulse Ox 97 92 78 96 01/02/20 01/02/20 01/02/20 01/02/20 12:16 12:30 12:45 13:00 Pulse 88 62 79 90 Resp 30 23 23 29 B/P (MAP) 132/62 (85) 122/70 (87) 144/73 (96) Pulse Ox 100 82 97 01/02/20 01/02/20 01/02/20 01/02/20 13:15 13:30 13:45 14:00 Pulse 78 90 91 93 Resp 24 41 26 21 B/P (MAP) 138/63 (88) 118/51 (73) 119/72 (88) 115/68 (84) Pulse Ox 91 81 89 01/02/20 01/02/20 01/02/20 01/02/20 14:15 14:16 14:30 14:45 Pulse 72 80 93 89 Resp 26 21 29 16 B/P (MAP) 109/67 (81) 129/84 (99) 158/61 (93) Pulse Ox 86 95 01/02/20 01/02/20 01/02/20 01/02/20 15:01 15:15 15:31 15:34 Pulse 87 80 94 91 Resp 26 35 33 21 B/P (MAP) 132/63 (86) 158/63 (94) 181/116 (137) 151/65 (93) Pulse Ox 69 81 01/02/20 01/02/20 01/02/20 01/02/20 15:46 16:01 16:16 16:30 Pulse 81 88 78 82 Resp 32 25 25 28 B/P (MAP) 156/61 (92) 157/72 (100) 139/60 (86) 134/67 (89) 01/02/20 01/02/20 01/02/20 01/02/20 16:46 17:00 17:02 17:19 Pulse 86 75 76 85 Resp 33 28 28 30 B/P (MAP) 136/61 (86) 152/111 (125) 01/02/20 01/02/20 01/02/20 01/02/20 17:22 17:32 17:46 18:00 Pulse 82 77 75 81 Resp 28 28 38 31 B/P (MAP) 146/97 (113) 162/66 (98) 147/74 (98) Pulse Ox 96 97 01/02/20 01/02/20 01/02/20 01/02/20 18:05 18:45 19:00 19:00 Temp 96.8 98.4 Pulse 76 Resp 31 B/P (MAP) 166/81 (109) Pulse Ox 100 O2 Delivery Comfort Jose R Comfort Jose R 01/02/20 01/02/20 01/02/20 01/02/20 19:02 19:15 19:30 19:45 Pulse 89 93 89 96 Resp 27 28 16 27 B/P (MAP) 153/78 (103) 154/73 (100) 174/106 (128) 149/66 (93) Pulse Ox 93 93 96 96 01/02/20 01/02/20 01/02/20 01/02/20 20:00 20:15 20:30 20:45 Pulse 86 94 86 105 Resp 30 30 29 24 B/P (MAP) 132/103 (113) 147/86 (106) 154/81 (105) 162/56 (91) Pulse Ox 96 96 93 97 01/02/20 01/02/20 01/02/20 01/02/20 21:00 21:00 21:00 21:01 Pulse 107 107 105 104 Resp 16 16 16 32 B/P (MAP) 142/97 (112) Pulse Ox 96 96 96 97 O2 Delivery Comfort Jose R Comfort Jose R O2 Flow Rate 45.00 45.00 FiO2 100 100 01/02/20 01/02/20 01/02/20 01/02/20 22:24 22:30 22:45 23:00 Pulse 97 96 92 Resp 31 35 32 B/P (MAP) 149/103 (118) 146/88 (107) 135/79 (97) Pulse Ox 94 93 92 O2 Delivery Comfort Jose R 01/02/20 01/02/20 01/02/20 01/02/20 23:00 23:01 23:30 23:31 Temp 98.0 Pulse 104 97 94 106 Resp 33 31 31 35 B/P (MAP) 147/72 (97) 167/82 (110) Pulse Ox 97 100 96 99 01/02/20 01/03/20 01/03/20 01/03/20 23:45 00:00 00:15 00:30 Pulse 88 87 109 95 Resp 32 32 24 30 B/P (MAP) 160/100 (120) 175/70 (105) 158/88 (111) 160/100 (120) Pulse Ox 100 100 98 99 01/03/20 01/03/20 01/03/20 01/03/20 00:45 01:00 01:15 01:30 Pulse 84 102 93 82 Resp 29 44 34 28 B/P (MAP) 166/88 (114) 170/107 (128) 155/72 (99) 174/99 (124) Pulse Ox 99 97 100 99 01/03/20 01/03/20 01/03/20 01/03/20 01:45 02:00 02:15 02:30 Pulse 97 98 72 76 Resp 31 26 32 29 B/P (MAP) 158/70 (99) 179/84 (115) 156/80 (105) 161/73 (102) Pulse Ox 100 97 100 99 01/03/20 01/03/20 01/03/20 01/03/20 02:45 03:00 03:00 03:15 Pulse 84 86 90 Resp 30 30 29 B/P (MAP) 159/82 (107) 160/94 (116) 166/84 (111) Pulse Ox 98 98 100 O2 Delivery Comfort Jose R 01/03/20 01/03/20 01/03/20 01/03/20 03:30 03:45 04:00 04:15 Temp 98.0 Pulse 76 81 97 87 Resp 29 26 38 28 B/P (MAP) 162/68 (99) 156/85 (108) 182/93 (122) 164/88 (113) Pulse Ox 100 99 94 96 01/03/20 01/03/20 01/03/20 01/03/20 04:30 04:45 05:00 05:15 Pulse 85 81 80 68 Resp 29 27 28 27 B/P (MAP) 153/66 (95) 148/83 (104) 146/84 (104) 132/74 (93) Pulse Ox 95 97 97 99 01/03/20 01/03/20 01/03/20 01/03/20 05:30 05:45 06:00 06:15 Pulse 76 104 89 113 Resp 29 41 24 27 B/P (MAP) 166/93 (117) 197/98 (131) 187/77 (113) 178/84 (115) Pulse Ox 99 95 60 91 01/03/20 01/03/20 01/03/20 01/03/20 08:15 08:15 08:15 08:20 Temp 97.2 Pulse 79 98 79 94 Resp 26 B/P (MAP) 165/93 (117) Pulse Ox 94 91 94 83 O2 Delivery Comfort Jose R O2 Flow Rate 45.00 45.00 FiO2 100 100 01/03/20 01/03/20 01/03/20 01/03/20 08:30 08:40 08:45 08:45 Pulse 85 83 81 77 Resp 24 25 B/P (MAP) 161/90 (113) 143/89 Pulse Ox 90 89 89 01/03/20 01/03/20 01/03/20 01/03/20 09:00 09:15 09:20 09:30 Pulse 82 83 77 88 Resp 27 35 B/P (MAP) 143/89 (107) 168/89 (115) Pulse Ox 85 94 88 81 01/03/20 01/03/20 01/03/20 01/03/20 09:40 09:45 10:00 10:15 Pulse 104 94 95 88 Resp 25 B/P (MAP) 174/94 (120) 181/89 (119) Pulse Ox 85 84 92 92 01/03/20 01/03/20 01/03/20 01/03/20 10:15 10:20 10:30 10:37 Temp 98.9 Pulse 96 90 90 95 Resp B/P (MAP) 197/88 157/105 (122) 167/81 (109) Pulse Ox 90 90 93 01/03/20 01/03/20 01/03/20 01/03/20 10:45 10:47 10:50 12:00 Temp 98.0 Pulse 84 93 103 78 Resp 32 32 24 B/P (MAP) 197/88 (124) 156/71 Pulse Ox 82 Intake and Output 01/03/20 06:00 Intake Total 2715 ml Output Total 400 ml Balance 2315 ml VTE VTE Risk Total Score: 5 VTE Risk Score VTE Risk: Score 0-1 = Low Risk (Aggressive mobilization; early ambulation; no VTE prophylaxis required) Score 2: Moderate Risk (Intermittent/Pneumatic Compression Device OR Lovenox/Heparin/Coumadin) Score 3-4: High Risk (Intermittent/Pneumatic Compression Device AND Lovenox/Heparin/Coumadin) Score > or =5: Highest Risk (Intermittent/Pneumatic Compression Device AND Lovenox/Heparin/Coumadin) Antico:Hep/LMWH/Coum/Xarelto: Yes Mechanical device ordered: Yes VTE VTE Present on Admission: No Currently receiving anticoagul: No VTE Risk Total Score: 5 Antico:Hep/LMWH/Coum/Xarelto: Yes Mechanical device ordered: Yes Assessment/Plan Assessment/Plan Plan 74-year-old male with acute hypoxemic respiratory failure due to COVID-19 pneumonia now on high flow O2 Delirium Plan #1 Neuro: He has become too delirious to participate in interview. Consider EtOH withdrawal vs other metabolic encephalopathy. #2 CV: He has hx of afib with RVR and was on dilt drip. Cont ASA, diltiazem and NOAC #3 Pulm: Pt has covid PNA now c/b ARDS and acute respiratory failure with hypoxia requiring CPAP 16 100% fio2. SaO2 today >94% on this. WIll continue comfort flow for now. Pt received decadron, remdesivir, vit c, ceftriaxone/azithro, thiamine melatonin. If O2 sat worsens can go back to CPAP. #4 GI: Recommend NPO until his mental status / alertness improves #5 Renal: Monitor for renal failure, replete lytes #6 ID: Covid + and getting remdesivir ceftriaxone and azithro #7 Endo: keep FS 150-180 #8 Heme: Tx plats >10k hgb >7, pt at risk for clotting and so will give therapuetic a/c #9 PPx: NOAC and PPI I discussed pt with SUPERVISOR UNDERWRITING CLERKS and completed the video assessment with assistance from the SUPERVISOR UNDERWRITING CLERKS. I spent a total of greater than 60 minutes formulating critical care for this patient today. I saw this patient and completed a full visual exam via audio-visual HIPAA compliant technology. LAYTON NEWMAN MD Jan 03, 2020 13:59
[2020-01-03 15:53] LABS: EOSINOPHIL % 0.1 % (0.0-5.0); LYMPHOCYTES # 0.52 10^3/uL1 (1.0-4.8); LYMPHOCYTES % 3.7 % (24.0-44.0); MEAN CORP HGB 28.4 pg (26-34); MONOCYTES # 0.3 10^3/uL (0.3-0.8); MONOCYTES % 1.9 % (5.0-12.0); NEUTROPHILS % 92.4 % (41.0-85.0); PLATELET COUNT 439 10^3/uL (150-400); RED CELL DISTRIBUTION WIDTH 17.7 % (11.5-14.5)
[2020-01-03] MEDS: DECADRON IV SCH (16:00)
[2020-01-03] MEDS: ROCEPHIN 1,000 MG in NS 100ML 100 ML IV SCH (16:00)
[2020-01-03] MEDS: ZITHROMAX 500 MG in NS 250ML 250 ML IV SCH (16:00)
[2020-01-03 16:09] LABS: CALCIUM 8.9 mg/dL (8.4-10.5); CARBON DIOXIDE 17.3 mmol/L (20.0-32)
--- NOTE | 2020-01-03 16:30 | PRM.PN ---
PROGRESS NOTE S/O/A/P DATE: 01/03/20 TIME: 11:15am SUBJECTIVE: Still feeling SOB with cough. Off CPAP and currently on Comfort Jose R. Per RN, patient was confused overnight and pulled out his IV lines, soliman, telemetry, etc. Currently requiring soft wrist restraints for his own protection. Convalescent Plasma running at this time. HR better controlled and now off the Cardizem drip. OBJECTIVE: PHYSICAL EXAMINATION: VITAL SIGNS: T 98.9, HR 103, RR 32, BP 197/88, O2 sat 89% Comfort Jose R GENERAL: Resting comfortably in NAD. Acutely ill-appearing. No family or friends present at bedside. HEENT: NC/AT. PERRLA. EOMI. MMM. Neck is supple. LUNGS: Decreased BS BL. Mildly tachypneic with minimal usage of his accessory muscles of respiration. Coughing loudly. HEART: Normal S1S2. No murmurs, rubs, gallops, or thrills. ABDOMEN: Soft. ND. NTTP. No rebound or guarding. Normal BS throughout. EXTREMITIES: No pitting edema. Weak, but moving all 4 extremities spontaneously. NEUROLOGIC: Confused and not following commands at this time. LABORATORY DATA: Reviewed and significant for WBC 14, Hgb 10.7, Hct 32, Plt 439, K 3.0, Gluc 115, AB.34//53, Bld Cx neg x1 day IMAGING STUDIES: No new studies today. ASSESSMENT / PLAN: 1) Acute Hypoxemic Respiratory Failure / ARDS: Continue Comfort Jose R and alternate with CPAP PRN to maintain O2 sats. 2) COVID-19+: Continue Remdesivir, Dexamethasone, Vit C, Zinc, and Convalescent Plasma. 3) Pneumonia: Continue Rocephin and Azithromycin. 4) A Fib with RVR: Now off the Cardizem drip and on Cardizem PO. Anticoagulated with Xarelto. 5) HTN uncontrolled: Likely exacerbated by respiratory issues and anxiety. Monitor and give Hydralazine IV PRN. 6) ICU Delirium: Continue supportive care. 7) Elevated D-dimer: CTA negative for PE. Continue Xarelto due to #2 above. 8) Chest pain with Elevated TPN: Pt with known CAD s/p CABG and ME earlier this month. Monitor and follow up with Dr Rich who recommended outpatient workup. 9) Hypokalemia: Replace PRN. 10) Alcohol Abuse: Continue IV Ativan PRN. 11) Anemia: Stable. Monitor. 12) GI and DVT prophylaxis: Continue Pepcid and Xarelto. >35 min CC time was spent with patient at bedside today as well as in coordination of care. YARELY TAFOYA MD Jan 03, 2020 16:30
--- NOTE | 2020-01-03 18:55 | NUR ---
RECEIVED REPORT FROM Micah WILLIS RN PATIENT RESTING ON SEMI FOWLERS POSITION. AFEBRILE. COMFORT FLOW 45L/ FIO2 100% SPO2 92-93%. SINGLE LUMEN MIDLINE PATENT. ASSUMED CARE. SEE ASSESSMENT.
[2020-01-03 20:31] LABS: BAND NEUTROPHILS 2 % (2-6); LYMPHOCYTE 4 % (25-36); MONOCYTE 3 % (3-9); NUCLEATED RED BLOOD CELLS 1 % (0-0); SEGMENTED NEUTROPHILS 91 % (31-76)
[2020-01-03 20:32] LABS: BURR CELLS 1+ (NEGATIVE)
[2020-01-03] MEDS: DILAUDID IV PRN (20:39)
--- NOTE | 2020-01-03 20:45 | NUR ---
BOWEL MOVEMENT LARGE DARK BROWN LIQUID STOOL DEFECATED. CLEANED PATIENT ACCORDINGLY. BATH RENDERED. CHANGED GOWN AND BEDDINGS. PROVIDED NON SKID SOCKS. TOLERATED WELL.
--- NOTE | 2020-01-03 21:10 | NUR ---
TELEPHONE CALL TO DR TAFOYA NOTIFIED RE: PATIENT'S HR, AFIB 138 BPM. RECEIVED ORDER TO DISCONTINUE CARDIZEM PO. RESTART PATIENT ON CARDIZEM DRIP, TITRATE PER PROTOCOL. KEEP HR >100. RBTO
[2020-01-03] MEDS ORDERED: NS 100ML 100 ML IV ONE (21:12)
[2020-01-03] MEDS ORDERED: CARDIZEM ONE (21:12)
--- NOTE | 2020-01-03 21:20 | NUR ---
CARDIZEM DRIP @ 5 MG/HR SEE EMAR
[2020-01-03] MEDS ORDERED: CARDIZEM 125 MG in NS 100ML 100 ML IV SCH (21:30)
--- NOTE | 2020-01-03 22:21 | NUR ---
CARDIZEM DRIP @ 10 MG/HG HR 115 BPM, AFIB
--- NOTE | 2020-01-03 22:53 | DIET.OP ---
Nutrition Asmt/Malnutrit 2-17 Actual Date of Review: Jan 03, 2020 Nutritional Screening: Nutritional Screening Diagnosis: Pneumonia, COVID 19 Pertinent Medical Hx/Surgical: CAD, hyperlipidemia, heavy drinking the last 3 months. Subjective Information: Pt on comfort flow oxyen. Current Diet Order/Nutrition S: 2 g Na Patient /S.O: Not Indicated Pertinent Labs K 3, Cl 112, BUN 19, BG 115 Height (Feet): 6 Height (Inches): 0 Current Weight: 179 Recent Weight Change: No (pt reports no wt changes) Weight Status: Appropriate Food Allergies: No Cultural/Ethnic/Zoroastrian Yvonne: none Usual Diet at Home: regular Current %PO: 0-15% BEE in Kcals: Use Current Weight Calories/Kcals/Kg: MSJ 1.2-1.4 Kcals Calculated: 1817-1409 Protein: Use Current Weight Protein g/k-1.2 Protein Calculated: 81-97 Fluid: ml: 7922-1541 (1ml/kcal) Nutritional Problem: Nutr. Problems Present Problems: Inadequate oral intake Etiology: COVID-19, pneumonia Signs/Symptoms: 0-15% po intake of meals not meeting nutrition needs Recommendations by RD: Add supplement feedings RD Comments: 1. Continue low Na diet, encouraging po intake at meals and assisting with meals PRN. 2. Recommend Ensure Enlive oral supplement TID to help meet nutritional needs. 3. Small frequent meals and snacks. 4. Monitor electrolytes and treat as indicated. 5. Consider a MVI due to poor po intake and hx of ETOH abuse. Expected Outcomes 100% po intake of most meals to meet estimated needs in the next 5 days. discharge goal is pending Malnutrtion/Nutrition Risk Edu: No MD Notificiation Needed?: Yes (Recommend Ensure Enlive oral supplement TID due to poor po intake.) Tahmina Estevez Jan 03, 2020 22:53
[2020-01-04] VITALS (45 sets, daily range): BP systolic 100–216; BP diastolic 52–114
[2020-01-04] MEDS: ATIVAN IV PRN (00:56)
--- NOTE | 2020-01-04 03:45 | NUR ---
CARDIZEM DRIP DISCONTINUED PATIENT'S HR DECREASED TO LOW 50s. NOTIFIED DR TAFOYA. RECEIVED ORDER TO DISCONTINUE. RBTO. CARRIED OUT ACCORDINGLY
--- NOTE | 2020-01-04 04:18 | NUR ---
Pt with decreased O2 sats and increased lethargy. Respirations increased. ABG collected per RT. Results called to Dr. Martinez by NEGAR Ayala. Decision to intubate. Anesthesia notified, awaiting their arrival. RN remains at bedside with patient. At this time, BP 121/53, HR 75, RR 26, O2 sat 83 on 100% comfort flow & NRB mask. Will monitor closely.
[2020-01-04] MEDS ORDERED: DIPRIVAN 100 ML IV ONE (04:34)
--- NOTE | 2020-01-04 04:48 | NUR ---
INTUBATION IN THE ROOM, Travis RAMIREZ RT, Micah WILSON RN, Micah ORTA RN. 0438 SPO2 81% ON 100% COMFORT FLOW, HR 69 BPM, RR 20/MIN 0440 AMBU BAGGING SPO2 79% 0442 50 MG PROPOFOL ADMINISTERED BY Micah WILSON CRNA 0443 AMBU BAGGING, SPO2 79%, HR 47, INCREASE TO SPO2 87%, HR 68 BPM 0444 2 MG IV VERSED ADMINISTERED BY Micah WILSON CRNA AMBU BAGGING, SPO2 91% HR 70 BPM, BP 135/65 0445 BP 144/77, (+) PALPABLE RADIAL AND FEMORAL PULSES 0446 PROPOFOL 50 MG IV & SUCCINYLCHOLINE 60 MG IV ADMINISTERED BY Micah WILSON CRNA 0447 INTUBATION ATTEMPT UNSUCCESSFUL, SPO2 83% 0448 INTUBATION SUCCESSFUL, 7.5 ETT TUBE. 22 CM @ THE LIP, COLOR CHANGE NOTED IN CAPNOGRAPHY, EQUAL BREATH SOUNDS TO ALL LUNG MCGUIRE. 0430 KIESHA APPLIED. SPO2 84% HR 93 BPM AMBU BAGGING RESUMED. 0453 ON VENT SPO2 82%M HR 94 BPM. SUCTIONED BY RT. ETT TUBE 23 CM @ THE LIP 0447 SPO2 74% ON VENT, HR 83 BPM 0449 50 MG PROPOFOL ADMINISTERED BY Micah WILSON CRNA. SPO2 83% HR 100 BPM 0503 SUCTIONED BY Travis RAMIREZ RT 0505 STARTED ON PROPOFOL DRIP AT 20 MCG/KG/MIN, BP 96/55 MMHG DUONEB TREATMENT ADMINISTERED BY Travis RAMIREZ RT 0520 DR TAFOYA ARRIVED 0525 VECURONIUM 5 MG IV ADMINISTERED BY Micah WILSON CRNA PROPOFOL 50 MG IV ADMINISTERED BY Micah WILSON CRNA MUCOMYST 4 MG VIA ET TUBE ADMINSITERED BY Travis RAMIREZ RT 0550 PROPOFOL DRIP PAUSED PER Micah WILSON CRNA BP 11/67 MMHG, HR 89 BPM 0605 2 MG IV ADMINISTERED BY Micah WILSON CRNA [address] ON THE PHONE WITH DR TAFOYA 0615 PROPOFOL DRIP RESUMED @ 25 MCG/KG/MIN INCREASED UP TO 35 MCG/KG/MIN 0622 BP 84/23 MMHG. PROPOFOL PAUSED PER CURRICULUM COACH 0625 VECURONIUM 5 MG IV ADMINISTERED. SEE EMAR [address]34 RECE[address] ORDER FROM DR TAFOYA TO INCREASE PEEP FROM 8 TO 10. RT CARRIED OUT 0635 PROPOFOL DRIP RESUMED @ 15 MCG/KG/MIN. BP 150/98 MMHG, RR 20, 87% SPO2
[2020-01-04] MEDS ORDERED: NORCURON ONE ×2 (04:57→14:47)
[2020-01-04] MEDS ORDERED: DUO 0.5-3(2.5) MG/3 ML IH ONE (04:57)
[2020-01-04] MEDS ORDERED: KCL 20MEQ/100ML 100 ML IV ONE (05:00)
[2020-01-04] MEDS ORDERED: NS 100ML 100 ML IV ONE ×2 (05:06→09:11)
[2020-01-04] MEDS: NORCURON IV PRN ×3 (05:25→09:05)
[2020-01-04] MEDS ORDERED: MUCOMYST ONE (05:26)
[2020-01-04] MEDS ORDERED: DILAUDID IV PRN (05:30)
[2020-01-04] MEDS ORDERED: APRESOLINE IV PRN (05:30)
--- NOTE | 2020-01-04 05:50 | DIREP ---
PROCEDURE:CHEST 1 VIEW COMPARISON:None. INDICATIONS:TUBE PLACEMENT FINDINGS: LUNGS/PLEURA:There are diffuse increased opacities in both lungs. VASCULATURE:Normal. Unremarkable pulmonary vasculature. CARDIAC:Previous CABG peer MEDIASTINUM:ET tube 1 cm above the dell. BONES:Normal. No fracture or visible bony lesion. OTHER:Previous sternotomy. Surgical clips right upper quadrant of the abdomen. Monitor leads are in place. CONCLUSION: 1. ET tube 1 cm above the dell. This can be withdrawn an additional 2-3 cm. 2. There remain diffuse bilateral opacities in both lungs. Dictated by: Jd Guadalupe M.D. on 01/04/2020 at 05:47 AM
--- NOTE | 2020-01-04 05:51 | TELE.CONS ---
Consultation Reason for Consult: Reason for Consultation: resp failure Review of Systems Constitutional: Weakness, Malaise Eyes: No: Pain, Vision change, Conjunctivae inflammation, Eyelid inflammation, Other, Redness ENT: No: Ear pain, Ear discharge, Nose pain, Nose discharge, Nose congestion, Mouth pain, Mouth swelling, Throat pain, Throat swelling, Other Respiratory: Cough, Shortness of breath Cardiovascular: Chest Pain Gastrointestinal: Nausea, Vomiting, Diarrhea Genitourinary: No Dysuria, No Frequency, No Incontinence, No Hematuria, No Retention, No Other Musculoskeletal: No: other, neck pain, shoulder pain, arm pain, back pain, hand pain, leg pain, foot pain Skin: No: Rash, Lesions, Jaundice, Bruising, Other Neurological: Weakness Allergies: Coded Allergies: No Known Allergies (Unverified , 01/01/20) VITALS REVIEW VITALS Vital Sign - Last 24 Hours 01/01/20 01/01/20 01/01/20 01/01/20 14:40 15:02 15:19 15:26 Pulse 112 122 Resp B/P (MAP) 140/107 Pulse Ox 92 92 O2 Delivery Comfort Jose R Comfort Jose R O2 Flow Rate 45.00 45.00 01/01/20 01/01/20 01/01/20 01/01/20 15:45 16:00 16:15 16:20 Temp 99.3 Pulse 124 109 107 117 Resp 31 68 23 28 B/P (MAP) 140/107 (118) 129/72 (91) Pulse Ox 89 87 94 98 O2 Delivery S/T FiO2 100 01/01/20 01/01/20 01/01/20 01/01/20 16:30 16:45 17:00 17:10 Pulse 107 113 122 107 Resp 19 23 20 20 Pulse Ox 90 91 98 94 O2 Delivery S/T FiO2 100 01/01/20 01/01/20 01/01/20 01/01/20 17:12 17:12 17:15 18:47 Pulse 122 122 114 113 Resp 25 24 Pulse Ox 89 99 01/01/20 01/01/20 01/01/20 01/01/20 19:00 19:15 19:30 19:33 Pulse 99 103 84 94 Resp 27 25 27 19 B/P (MAP) 83/50 (61) 71/46 (54) 106/63 (77) Pulse Ox 100 97 98 01/01/20 01/01/20 01/01/20 01/01/20 19:45 19:55 20:00 20:15 Temp 97.9 Pulse 84 93 79 84 Resp 22 20 18 20 B/P (MAP) 71/36 (48) 86/50 (62) 108/64 (79) Pulse Ox 99 100 100 01/01/20 01/01/20 01/01/20 01/01/20 20:25 20:30 20:45 21:00 Pulse 85 79 74 Resp 23 19 20 B/P (MAP) 119/63 (81) 92/44 (60) 86/49 (61) Pulse Ox 93 95 O2 Delivery C-Pap 01/01/20 01/01/20 01/01/20 01/01/20 21:15 21:30 21:45 22:00 Pulse 59 71 65 61 Resp 19 19 19 19 B/P (MAP) 94/51 (65) 98/55 (69) 87/40 (56) 76/48 (57) Pulse Ox 95 94 94 95 01/01/20 01/01/20 01/01/20 01/01/20 22:15 22:30 22:45 22:57 Pulse 66 62 70 63 Resp 18 16 23 17 B/P (MAP) 109/60 (76) 85/42 (56) Pulse Ox 89 93 93 95 O2 Delivery CPAP FiO2 100 01/01/20 01/01/20 01/01/20 01/01/20 23:00 23:15 23:30 23:45 Pulse 85 80 76 96 Resp 23 14 19 33 B/P (MAP) 137/64 (88) 108/47 (67) 84/35 (51) 01/02/20 01/02/20 01/02/20 01/02/20 00:30 00:45 00:47 01:00 Temp 98.0 Pulse 97 82 84 Resp 46 20 22 B/P (MAP) 144/85 (104) 116/92 (100) O2 Delivery C-Pap 01/02/20 01/02/20 01/02/20 01/02/20 01:15 01:30 01:45 02:00 Pulse 77 64 71 66 Resp 22 24 21 20 B/P (MAP) 85/44 (58) 66/42 (50) 85/53 (64) 81/50 (60) Pulse Ox 100 100 100 100 01/02/20 01/02/20 01/02/20 01/02/20 02:15 02:30 02:45 03:00 Pulse 62 48 65 57 Resp 25 22 22 21 B/P (MAP) 93/60 (71) 99/51 (67) 114/42 (66) 116/60 (78) Pulse Ox 99 98 100 99 01/02/20 01/02/20 01/02/20 01/02/20 03:15 03:30 03:45 04:08 Pulse 55 48 63 60 Resp 26 23 23 B/P (MAP) 82/50 (61) 82/48 (59) Pulse Ox 96 94 98 01/02/20 01/02/20 01/02/20 01/02/20 04:15 04:23 04:30 04:45 Temp 97.9 Pulse 75 69 62 Resp 24 22 24 B/P (MAP) 126/62 (83) 100/54 (69) 94/45 (61) Pulse Ox 72 95 99 O2 Delivery C-Pap 01/02/20 01/02/20 01/02/20 01/02/20 05:00 05:15 05:19 05:30 Pulse 57 54 70 47 Resp 20 26 24 27 B/P (MAP) 90/37 (54) 74/35 (48) Pulse Ox 94 94 95 96 O2 Delivery CPAP FiO2 100 01/02/20 01/02/20 01/02/20 01/02/20 05:45 05:57 06:00 06:15 Pulse 46 51 58 47 Resp 22 22 25 22 B/P (MAP) 94/50 (65) 91/43 (59) 78/35 (49) Pulse Ox 100 98 100 96 O2 Delivery CPAP FiO2 100 01/02/20 01/02/20 01/02/20 01/02/20 06:30 06:45 07:00 07:15 Pulse 61 48 56 46 Resp 23 26 18 22 B/P (MAP) 136/52 (80) 128/56 (80) 124/44 (70) Pulse Ox 97 97 01/02/20 01/02/20 01/02/20 01/02/20 07:30 07:40 07:40 07:46 Temp 96.1 Pulse 48 66 64 66 Resp 14 22 22 33 B/P (MAP) 113/32 (59) 128/75 (92) Pulse Ox 96 95 95 90 O2 Delivery CPAP C-Pap FiO2 100 100 01/02/20 01/02/20 01/02/20 01/02/20 08:01 08:16 08:30 08:32 Pulse 60 82 78 67 Resp 18 44 24 29 B/P (MAP) 130/72 (91) 120/55 (76) 84/42 (56) 112/53 (72) Pulse Ox 95 88 53 94 01/02/20 01/02/20 01/02/20 01/02/20 08:45 09:00 09:15 09:28 Pulse 41 45 51 59 Resp 26 26 27 24 B/P (MAP) 95/58 (70) 100/73 (82) 87/38 (54) 112/64 (80) Pulse Ox 96 99 98 01/02/20 01/02/20 01/02/20 01/02/20 09:31 09:45 10:00 10:16 Pulse 61 38 55 60 Resp 30 23 26 21 B/P (MAP) 116/54 (74) 95/58 (70) 122/58 (79) 119/45 (69) Pulse Ox 98 91 99 01/02/20 01/02/20 01/02/20 01/02/20 10:31 10:46 11:00 11:15 Pulse 57 53 76 79 Resp 30 49 24 22 B/P (MAP) 137/67 (90) 109/61 (77) 105/59 (74) Pulse Ox 100 97 100 100 01/02/20 01/02/20 01/02/20 01/02/20 11:30 11:45 12:00 12:15 Pulse 87 86 95 92 Resp 18 25 27 25 B/P (MAP) 120/66 (84) 139/66 (90) 131/54 (79) 129/61 (83) Pulse Ox 97 92 78 96 01/02/20 01/02/20 01/02/20 01/02/20 12:16 12:30 12:45 13:00 Pulse 88 62 79 90 Resp 30 23 23 29 B/P (MAP) 132/62 (85) 122/70 (87) 144/73 (96) Pulse Ox 100 82 97 01/02/20 01/02/20 01/02/20 01/02/20 13:15 13:30 13:45 14:00 Pulse 78 90 91 93 Resp 24 41 26 21 B/P (MAP) 138/63 (88) 118/51 (73) 119/72 (88) 115/68 (84) Pulse Ox 91 81 89 01/02/20 01/02/20 01/02/20 01/02/20 14:15 14:16 14:30 14:45 Pulse 72 80 93 89 Resp 26 21 29 16 B/P (MAP) 109/67 (81) 129/84 (99) 158/61 (93) Pulse Ox 86 95 01/02/20 01/02/20 01/02/20 01/02/20 15:01 15:15 15:31 15:34 Pulse 87 80 94 91 Resp 26 35 33 21 B/P (MAP) 132/63 (86) 158/63 (94) 181/116 (137) 151/65 (93) Pulse Ox 69 81 01/02/20 01/02/20 01/02/20 01/02/20 15:46 16:01 16:16 16:30 Pulse 81 88 78 82 Resp 32 25 25 28 B/P (MAP) 156/61 (92) 157/72 (100) 139/60 (86) 134/67 (89) 01/02/20 01/02/20 01/02/20 01/02/20 16:46 17:00 17:02 17:19 Pulse 86 75 76 85 Resp 33 28 28 30 B/P (MAP) 136/61 (86) 152/111 (125) 01/02/20 01/02/20 01/02/20 01/02/20 17:22 17:32 17:46 18:00 Pulse 82 77 75 81 Resp 28 28 38 31 B/P (MAP) 146/97 (113) 162/66 (98) 147/74 (98) Pulse Ox 96 97 01/02/20 01/02/20 01/02/20 01/02/20 18:05 18:45 19:00 19:00 Temp 96.8 98.4 Pulse 76 Resp 31 B/P (MAP) 166/81 (109) Pulse Ox 100 O2 Delivery Comfort Jose R Comfort Jose R 01/02/20 01/02/20 01/02/20 01/02/20 19:02 19:15 19:30 19:45 Pulse 89 93 89 96 Resp 27 28 16 27 B/P (MAP) 153/78 (103) 154/73 (100) 174/106 (128) 149/66 (93) Pulse Ox 93 93 96 96 01/02/20 01/02/20 01/02/20 01/02/20 20:00 20:15 20:30 20:45 Pulse 86 94 86 105 Resp 30 30 29 24 B/P (MAP) 132/103 (113) 147/86 (106) 154/81 (105) 162/56 (91) Pulse Ox 96 96 93 97 01/02/20 01/02/20 01/02/20 01/02/20 21:00 21:00 21:00 21:01 Pulse 107 107 105 104 Resp 16 16 16 32 B/P (MAP) 142/97 (112) Pulse Ox 96 96 96 97 O2 Delivery Comfort Jose R Comfort Jose R O2 Flow Rate 45.00 45.00 FiO2 100 100 01/02/20 01/02/20 01/02/20 01/02/20 22:24 22:30 22:45 23:00 Pulse 97 96 92 Resp 31 35 32 B/P (MAP) 149/103 (118) 146/88 (107) 135/79 (97) Pulse Ox 94 93 92 O2 Delivery Comfort Jose R 01/02/20 01/02/20 01/02/20 01/02/20 23:00 23:01 23:30 23:31 Temp 98.0 Pulse 104 97 94 106 Resp 33 31 31 35 B/P (MAP) 147/72 (97) 167/82 (110) Pulse Ox 97 100 96 99 01/02/20 01/03/20 01/03/20 01/03/20 23:45 00:00 00:15 00:30 Pulse 88 87 109 95 Resp 32 32 24 30 B/P (MAP) 160/100 (120) 175/70 (105) 158/88 (111) 160/100 (120) Pulse Ox 100 100 98 99 01/03/20 01/03/20 01/03/20 01/03/20 00:45 01:00 01:15 01:30 Pulse 84 102 93 82 Resp 29 44 34 28 B/P (MAP) 166/88 (114) 170/107 (128) 155/72 (99) 174/99 (124) Pulse Ox 99 97 100 99 10/31/20 10/31/20 10/31/20 10/31/20 01:45 02:00 02:15 02:30 Pulse 97 98 72 76 Resp 29 B/P (MAP) 158/70 (99) 179/84 (115) 156/80 (105) 161/73 (102) Pulse Ox 100 97 100 99 01/03/20 01/03/20 01/03/20 01/03/20 02:45 03:00 03:00 03:15 Pulse 84 86 90 Resp 29 B/P (MAP) 159/82 (107) 160/94 (116) 166/84 (111) Pulse Ox 98 98 100 O2 Delivery Comfort Jose R 01/03/20 01/03/20 01/03/20 01/03/20 03:30 03:45 04:00 04:15 Temp 98.0 Pulse 76 81 97 87 Resp 38 28 B/P (MAP) 162/68 (99) 156/85 (108) 182/93 (122) 164/88 (113) Pulse Ox 100 99 94 96 01/03/20 01/03/20 01/03/20 01/03/20 04:30 04:45 05:00 05:15 Pulse 85 81 80 68 Resp 28 27 B/P (MAP) 153/66 (95) 148/83 (104) 146/84 (104) 132/74 (93) Pulse Ox 95 97 97 99 01/03/20 01/03/20 01/03/20 01/03/20 05:30 05:45 06:00 06:15 Pulse 76 104 89 113 Resp 29 41 24 27 B/P (MAP) 166/93 (117) 197/98 (131) 187/77 (113) 178/84 (115) Pulse Ox 99 95 60 91 01/03/20 01/03/20 01/03/20 01/03/20 08:15 08:15 08:15 08:20 Temp 97.2 Pulse 79 98 79 94 Resp 24 25 24 26 B/P (MAP) 165/93 (117) Pulse Ox 94 91 94 83 O2 Delivery Comfort Jose R O2 Flow Rate 45.00 45.00 FiO2 100 100 01/03/20 01/03/20 01/03/20 01/03/20 08:30 08:40 08:45 08:45 Pulse 85 83 81 77 Resp 25 24 25 B/P (MAP) 161/90 (113) 143/89 Pulse Ox 90 89 89 01/03/20 01/03/20 01/03/20 01/03/20 09:00 09:15 09:20 09:30 Pulse 82 83 77 88 Resp 25 27 27 35 B/P (MAP) 143/89 (107) 168/89 (115) Pulse Ox 85 94 88 81 01/03/20 01/03/20 01/03/20 01/03/20 09:40 09:45 10:00 10:15 Pulse 104 94 95 88 Resp 34 29 28 25 B/P (MAP) 174/94 (120) 181/89 (119) Pulse Ox 85 84 92 92 01/03/20 01/03/20 01/03/20 01/03/20 10:15 10:20 10:30 10:37 Temp 98.9 Pulse 96 90 90 95 Resp 30 30 28 31 B/P (MAP) 197/88 157/105 (122) 167/81 (109) Pulse Ox 90 90 93 01/03/20 01/03/20 01/03/20 01/03/20 10:45 10:47 10:50 11:30 Pulse 84 93 103 86 Resp 26 32 32 29 B/P (MAP) 197/88 (124) 176/94 (121) Pulse Ox 82 89 01/03/20 01/03/20 01/03/20 01/03/20 12:00 12:00 12:01 12:30 Temp 98.0 Pulse 78 105 118 88 Resp 24 34 41 32 B/P (MAP) 156/71 203/86 (125) 167/81 (109) Pulse Ox 78 78 01/03/20 01/03/20 01/03/20 01/03/20 13:00 13:30 14:00 14:30 Pulse 81 95 92 94 Resp 28 31 33 40 B/P (MAP) 167/99 (121) 153/78 (103) 146/61 (89) 103/57 (72) Pulse Ox 96 100 01/03/20 01/03/20 01/03/20 01/03/20 15:00 15:01 15:30 16:01 Temp 97.0 Pulse 80 74 81 105 Resp 34 33 33 48 B/P (MAP) 157/76 (103) 156/71 (99) 222/163 (182) Pulse Ox 95 94 99 97 01/03/20 01/03/20 01/03/20 01/03/20 16:18 16:24 16:30 17:00 Pulse 105 111 121 96 Resp 46 30 37 39 B/P (MAP) 168/88 (114) Pulse Ox 94 96 01/03/20 01/03/20 01/03/20 01/03/20 17:30 17:47 19:00 19:00 Temp 98.1 Pulse 111 110 107 Resp 38 41 48 B/P (MAP) 149/88 (108) 147/89 (108) Pulse Ox 93 94 92 O2 Delivery Comfort Jose R 01/03/20 01/03/20 01/03/20 01/03/20 19:00 19:15 19:30 19:45 Pulse 109 96 93 Resp 36 35 31 B/P (MAP) 133/79 (97) Pulse Ox 98 99 97 O2 Delivery Comfort Jose R 01/03/20 01/03/20 01/03/20 01/03/20 20:00 20:15 20:30 20:45 Pulse 102 103 117 101 Resp 47 44 39 35 B/P (MAP) 156/92 (113) 180/89 (119) Pulse Ox 92 96 95 95 01/03/20 01/03/20 01/03/20 01/03/20 21:00 21:02 21:15 21:19 Pulse 106 110 145 131 Resp 35 38 48 49 B/P (MAP) 173/80 (111) Pulse Ox 98 98 92 92 01/03/20 01/03/20 01/03/20 01/03/20 21:30 21:32 21:39 21:45 Pulse 164 138 122 137 Resp 82 40 32 30 B/P (MAP) 153/71 (98) 145/94 (111) Pulse Ox 89 89 89 90 01/03/20 01/03/20 01/03/20 01/03/20 21:49 21:49 21:52 22:00 Pulse 93 93 138 115 Resp 31 31 32 B/P (MAP) 147/75 (99) Pulse Ox 97 97 76 O2 Delivery Comfort Jose R Comfort Jose R O2 Flow Rate 45.00 45.00 FiO2 100 100 01/03/20 01/03/20 01/03/20/31/20 22:15 22:30 22:45 23:00 Pulse 108 115 99 101 Resp 31 46 27 29 B/P (MAP) 126/77 (93) 139/80 (99) Pulse Ox 95 95 94 96 01/03/20 01/03/20 01/03/20 01/03/20 23:00 23:15 23:30 23:45 Temp 98.0 Pulse 93 78 80 Resp 29 28 30 B/P (MAP) 111/64 (80) Pulse Ox 95 94 90 O2 Delivery Comfort Jose R 01/04/20 01/04/20 01/04/20 01/04/20 00:00 00:15 00:30 00:45 Pulse 74 79 91 73 Resp 29 31 32 31 B/P (MAP) 131/63 (85) 142/83 (102) Pulse Ox 90 93 89 91 01/04/20 01/04/20 01/04/20 01/04/20 01:00 01:15 01:30 01:31 Pulse 82 92 112 109 Resp 33 36 41 42 B/P (MAP) 150/77 (101) 184/82 (116) Pulse Ox 82 79 85 81 01/04/20 03:48 Pulse 109 Resp 42 Pulse Ox 81 O2 Delivery Comfort Jose R FiO2 100 Intake and Output 01/04/20 06:00 Intake Total 500 ml Output Total 850 ml Balance -350 ml VTE VTE Risk Total Score: 5 VTE Risk Score VTE Risk: Score 0-1 = Low Risk (Aggressive mobilization; early ambulation; no VTE prophylaxis required) Score 2: Moderate Risk (Intermittent/Pneumatic Compression Device OR Lovenox/Heparin/Coumadin) Score 3-4: High Risk (Intermittent/Pneumatic Compression Device AND Lovenox/Heparin/Coumadin) Score > or =5: Highest Risk (Intermittent/Pneumatic Compression Device AND Lovenox/Heparin/Coumadin) Antico:Hep/LMWH/Coum/Xarelto: Yes Mechanical device ordered: Yes VTE VTE Present on Admission: No Currently receiving anticoagul: No VTE Risk Total Score: 5 Antico:Hep/LMWH/Coum/Xarelto: Yes Mechanical device ordered: Yes Assessment/Plan Assessment/Plan Assessment/Plan 74-year-old male with acute hypoxemic respiratory failure due to COVID-19 pneumonia now on high flow O2, now s/p ET intubation for worsening resp failure 1. vent settings adjusted. Vt decreased to 500ml 2. will start vecuronium for paralysis 3. cont propofol 4. CXR/ABG ordered 5. cont remdesivir 6. cont decadron I discussed pt with DIRECTOR OF INSTITUTIONAL RESEARCH as well as Dr. Martinez and completed the video assessment with assistance from the DIRECTOR OF INSTITUTIONAL RESEARCH. I spent a total of greater than 60 minutes formulating critical care for this patient today. I saw this patient and completed a full visual exam via audio-visual HIPAA compliant technology. SOHEILA ANTONIO MD Jan 04, 2020 05:51
[2020-01-04] MEDS: NS 1000 ML/KCL 40MEQ 1,000 ML IV SCH (06:00)
[2020-01-04 06:09] LABS: ABG PCO2 27.2 mmHg (35.0-45.0); ABG PH 7.377 (7.350-7.450); BE(B) -8.2 mmol/L (-2.0-2.0); HCO3act 15.6 mmol/L (22.0-26.0); pO2 52.7 mmHg (80.0-100.0)
--- NOTE | 2020-01-04 07:05 | NUR ---
REPORT GIVEN TO Delaney PHAM RN PATIENT FOR TRANSFER PER DR TAFOYA. AWAITING FOR ACCEPTING HOSPITAL.
[2020-01-04 07:30] LABS: ABG PCO2 31.6 mmHg (35.0-45.0); ABG PH 7.312 (7.350-7.450); BE(B) -9.4 mmol/L (-2.0-2.0); HCO3act 15.6 mmol/L (22.0-26.0); pO2 68.1 mmHg (80.0-100.0)
[2020-01-04] MEDS ORDERED: WATER 20 ML ONE (07:59)
[2020-01-04] MEDS: PEPCID IV SCH (08:00)
[2020-01-04] MEDS ORDERED: CARDIZEM ONE (08:18)
[2020-01-04 08:40] LABS: LYMPHOCYTES # 0.63 10^3/uL1 (1.0-4.8); LYMPHOCYTES % 4.1 % (24.0-44.0); MEAN CORP HGB 28.1 pg (26-34); MONOCYTES # 0.4 10^3/uL (0.3-0.8); MONOCYTES % 2.4 % (5.0-12.0); NEUTROPHIL # 13.9 10^3/uL (1.8-7.7); NEUTROPHILS % 90.6 % (41.0-85.0); PLATELET COUNT 513 10^3/uL (150-400); RED CELL DISTRIBUTION WIDTH 18.1 % (11.5-14.5)
[2020-01-04 09:05] LABS: CALCIUM 8.9 mg/dL (8.4-10.5); CARBON DIOXIDE 18.7 mmol/L (20.0-32)
[2020-01-04] MEDS ORDERED: DIPRIVAN IV ONE (09:07)
[2020-01-04] MEDS ORDERED: NS 250ML 250 ML IV ONE (09:07)
[2020-01-04] MEDS ORDERED: HUMALOG ONE (09:09)
[2020-01-04] MEDS ORDERED: QUELICIN ONE (14:47)
--- NOTE | 2020-01-04 15:36 | PRM.DC ---
DISCHARGE SUMMARY Y Date of Admission: Date of Discharge: FINAL DIAGNOSES: Please refer to my History and Physical to the point of my impression. HOSPITAL COURSE: YARELY TAFOYA MD Jan 04, 2020 15:36
[2020-01-04 15:53] LABS: ANISOCYTOSIS 1+ (NEGATIVE); BAND NEUTROPHILS 2 % (2-6); LYMPHOCYTE 5 % (25-36); MONOCYTE 4 % (3-9); SEGMENTED NEUTROPHILS 89 % (31-76); TOXIC GRANULATION 1+ (NEGATIVE)
[2020-01-04] MEDS ORDERED: DEXAMETHASONE 10 MG/ML VIAL IV SCH (16:00)
== END 2020-01-04 09:45 | disposition short-term general hospital (02) | DRG 208 ==
LOC: ICU 14:59
PROVIDERS: ADMIT Family Medicine; ATTEND Family Medicine
PROC: 5A09357 Assistance with Respiratory Ventilation, Less than 24 Consecutive Hours, Continuous Positive Airway Pressure (ICD-10-PCS; 2020-01-01)
PROC: XW033E5 Introduction of Remdesivir Anti-infective into Peripheral Vein, Percutaneous Approach, New Technology Group 5 (ICD-10-PCS; 2020-01-02)
PROC: 30233N1 Transfusion of Nonautologous Red Blood Cells into Peripheral Vein, Percutaneous Approach (ICD-10-PCS; principal; 2020-01-03)
PROC: 05HY33Z Insertion of Infusion Device into Upper Vein, Percutaneous Approach (ICD-10-PCS; 2020-01-03)
PROC: 5A1935Z Respiratory Ventilation, Less than 24 Consecutive Hours (ICD-10-PCS; 2020-01-04)
PROC: 0BH17EZ Insertion of Endotracheal Airway into Trachea, Via Natural or Artificial Opening (ICD-10-PCS; 2020-01-04)
DX: U07.1 COVID-19 (principal); J96.01 Acute respiratory failure with hypoxia; J12.89 Other viral pneumonia; I25.810 Atherosclerosis of coronary artery bypass graft(s) without angina pectoris; E87.1 Hypo-osmolality and hyponatremia; I10 Essential (primary) hypertension; I48.91 Unspecified atrial fibrillation; D64.9 Anemia, unspecified; E78.5 Hyperlipidemia, unspecified; E87.6 Hypokalemia; F10.10 Alcohol abuse, uncomplicated; F41.9 Anxiety disorder, unspecified; I25.10 Atherosclerotic heart disease of native coronary artery without angina pectoris; I25.2 Old myocardial infarction; Z78.1 Physical restraint status; Z79.01 Long term (current) use of anticoagulants; Z90.49 Acquired absence of other specified parts of digestive tract; Z95.1 Presence of aortocoronary bypass graft
CPT/HCPCS: 36415; 36569; 36600; 71045; 71275; 80053; 81000; 82550; 82553; 82728; 82803; 82948; 83605; 83615; 83735; 84100; 84145; 84436; 84439; 84443; 84484; 85025; 85027; 85379; 85610; 86900; 87040; 93005; 93306; 94002; 94640; 94660; G0378; J0132; J0330; J0456; J0461; J0696; J1100; J1170; J1650; J1815; J2060; J3475; J3490; J7030; J7050; J7620; P9017; Q9967; A4216; J3411; J3480